=== PATIENT | male | born 1960 | race Caucasian/White ===

== ENCOUNTER 2018-10-30 10:48 | Day surgery (SDC) | payer OTHER ==
[2018-10-29 11:30] VITALS: BMI 40.8
[2018-10-30] MEDS ORDERED: CEFAZOLIN 2 GM/50 ML BAG ONE (11:04)
[2018-10-30 12:32] LABS: #Eosinphils 0.3 thou/uL (0.0-0.7); #Lymphocytes 1.2 thou/uL (1.20-3.40); #Monocytes 0.5 thou/uL (0.11-0.59); #Neutrophils 6.3 thou/uL (1.40-6.50); %Basophils 0.4 % (0.0-1.0); %Eosinophils 3.6 % (0.0-10.0); %Monocytes 6.3 % (0.0-10.0); %Neutrophils 75.7 % (42.0-75.0); Hemoglobin 15.7 g/dL (14.0-18.0); Mean Corpuscular HGB CONC 33.6 g/dL (32.0-36.0); Mean Corpuscular Hemoglobin 30.4 pg (27.0-31.0); Mean Corpuscular Volume 90.4 fL (78.0-98.0); Mean Platelet Volume 8.2 fL (7.4-10.4); Platelet Count 147 thou/uL (130-400); RBC Distribution Width 12.5 % (11.5-14.5); Red Blood Cell (RBC) Count 5.16 mill/uL (4.70-6.10); White Blood Cell (WBC) Count 8.4 thou/uL (4.8-10.8)
[2018-10-30 12:40] LABS: INR-International Normal Ratio 1.1; PTT 29.3 SEC (22.9-36.1)
[2018-10-30] MEDS ORDERED: Meperidine HCl/PF 25 MG/ML VIAL ONE (13:34)
[2018-10-30] MEDS ORDERED: Midazolam HCl 2 mg/2 ml Vial ONE (13:35)
--- NOTE | 2018-10-30 16:09 | RAD ---
SINGLE VIEW OF THE CHEST: Comparison: 07-12-16 History: ICD placement. History of chest pain. FINDINGS: Single view of the chest shows an enlarged cardiomediastinal silhouette. There is a pacemaker with le ads in the right atrium, right ventricle, and coronary sinus. No pneumothorax is seen. There is no ev idence of consolidation, mass or pleural effusion. IMPRESSION: Status post pacemaker exchange without evidence of complication. POS: C
[2018-10-30] MEDS ORDERED: PROPOFOL 200 MG/20 ML VIAL ONE (21:09)
== END 2018-10-30 16:02 | disposition home or self-care (01) ==
LOC: SDC 10:48
PROVIDERS: ATTEND Internal Medicine Cardiovascular Disease
DX: Z45.02 Encounter for adjustment and management of automatic implantable cardiac defibrillator (principal); I11.0 Hypertensive heart disease with heart failure; I50.22 Chronic systolic (congestive) heart failure; I44.7 Left bundle-branch block, unspecified; I42.8 Other cardiomyopathies; E66.01 Morbid (severe) obesity due to excess calories; Z68.41 Body mass index [BMI] 40.0-44.9, adult; Z79.899 Other long term (current) drug therapy
CPT/HCPCS: 33264; 71045; 85025; 85610; 85730; 93641; C1882; J2175; J2250; J2704; J3490

== ENCOUNTER 2019-03-08 05:16 | Emergency (ER) | payer OTHER, SELFPAY ==
[2019-03-08] MEDS ORDERED: Nitroglycerin 2% Ointment 1 INCH/1 GM Packet ONE (06:08)
[2019-03-08] MEDS ORDERED: Aspirin Chewable 81 MG TAB ONE (06:08)
[2019-03-08] MEDS ORDERED: predniSONE 20 MG TAB ONE (06:08)
[2019-03-08 06:28] LABS: #Basophils 0.1 thou/uL (0.0-0.2); #Eosinphils 0.6 thou/uL (0.0-0.7); #Lymphocytes 0.7 thou/uL (1.20-3.40); #Monocytes 0.9 thou/uL (0.11-0.59); #Neutrophils 10.2 thou/uL (1.40-6.50); %Basophils 0.6 % (0.0-1.0); %Eosinophils 4.8 % (0.0-10.0); %Lymphocytes 5.8 % (21.0-51.0); %Monocytes 7.3 % (0.0-10.0); %Neutrophils 81.5 % (42.0-75.0); Hemoglobin 13.1 g/dL (14.0-18.0); Mean Corpuscular HGB CONC 32.4 g/dL (32.0-36.0); Mean Corpuscular Hemoglobin 30.1 pg (27.0-31.0); Mean Corpuscular Volume 92.8 fL (78.0-98.0); Mean Platelet Volume 8.3 fL (7.4-10.4); Platelet Count 134 thou/uL (130-400); RBC Distribution Width 13.2 % (11.5-14.5); Red Blood Cell (RBC) Count 4.36 mill/uL (4.70-6.10); White Blood Cell (WBC) Count 12.5 thou/uL (4.8-10.8)
[2019-03-08 06:45] LABS: ALT (SGPT) 23 U/L (8-55); AST (SGOT) 52 U/L (5-34); Albumin 3.8 g/dL (3.5-5.0); Alkaline Phosphatase 88 U/L (40-150); Anion Gap 11 mmol/L (10-20); BUN (Urea Nitrogen) 12 mg/dL (8.4-25.7); Bilirubin, Total 0.8 mg/dL (0.2-1.2); CK (CPK) 688 U/L (30-200); Calc. Creatinine Clearance 0 mL/min (70-130); Calcium 8.9 mg/dL (7.8-10.44); Carbon Dioxide 26 mmol/L (22-29); Chloride 108 mmol/L (98-107); Estimated GFR-MDRD Greater than 90; Globulin 2.9 g/dL (2.4-3.5); Glucose 115 mg/dL (70-105); Potassium 4.6 mmol/L (3.5-5.1); Protein, Total 6.7 g/dL (6.0-8.3); Sodium 140 mmol/L (136-145)
--- NOTE | 2019-03-08 07:37 | RAD ---
CHEST 1 VIEW: Date: 03/08/19 HISTORY: Chest pain and cough. COMPARISON: Prior exam dated 10/20/18. FINDINGS: The exam technique and limited inspiration slightly limits image detail of the exam. There is stable mild cardiomegaly. AICD is unchanged. No definite consolidation, pleural effusion, or pneumothorax ev ident. IMPRESSION: Limited exam. No definite acute cardiopulmonary abnormality. POS: BH
== END 2019-03-08 07:12 | disposition home or self-care (01) ==
LOC: SCSER 05:16
DX: J45.901 Unspecified asthma with (acute) exacerbation (principal); I11.0 Hypertensive heart disease with heart failure; I50.9 Heart failure, unspecified; Z79.899 Other long term (current) drug therapy
CPT/HCPCS: 71045; 80053; 82550; 83880; 84484; 85025; 93005; 94640; 94760; J7512; J7620

== ENCOUNTER 2020-03-21 12:08 | Inpatient (IN) | payer OTHER ==
[~2020-03-21 12:08] MED LIST: Iopamidol 370 76% 100 ML VIAL ONE
--- NOTE | 2020-03-21 13:12 | RAD ---
Exam: Chest one view HISTORY:Pleural effusion. Comparison: 03/08/2019 FINDINGS: Cardiac silhouette:Complete opacification left hemithorax which is presumed to be due to volume loss. There is leftward deviation of the coronary cell silhouette. Aorta: Cannot be assessed due to left hemithoracic opacification Pulmonary vessels: Normal Costophrenic angles: Right costophrenic angle is clear. Left-sided effusion cannot be excluded LUNGS: Compensatory hyperinflation of the right lung. Lines and tubes: Stable left-sided defibrillator. Lead position of the right atrium, right ventricle and coronary sinus. Right-sided HemoSplit dialysis catheter is presumed to terminate in the right atrium. Pneumothorax: None Osseous abnormalities: None IMPRESSION: 1. Complete opacification the left hemithorax. Given compensatory hyperinflation of the right lung an d leftward deviation cardiac mediastinal silhouette, component of volume loss in the left lung is suspected. Consider chest CT for better interrogation.
[2020-03-21 13:24] LABS: #Eosinphils 0.1 thou/uL (0.0-0.7); #Lymphocytes 0.9 thou/uL (1.20-3.40); #Monocytes 0.5 thou/uL (0.11-0.59); #Neutrophils 4.3 thou/uL (1.40-6.50); %Basophils 0.4 % (0.0-1.0); %Eosinophils 1.4 % (0.0-10.0); %Lymphocytes 15.5 % (21.0-51.0); %Monocytes 9.1 % (0.0-10.0); %Neutrophils 73.7 % (42.0-75.0); Hemoglobin 10.1 g/dL (14.0-18.0); Mean Corpuscular Hemoglobin 29.7 pg (27.0-31.0); Mean Corpuscular Volume 98.8 fL (78.0-98.0); Mean Platelet Volume 9.3 fL (7.4-10.4); Platelet Count 103 thou/uL (130-400); RBC Distribution Width 19.3 % (11.5-14.5); Red Blood Cell (RBC) Count 3.42 mill/uL (4.70-6.10); White Blood Cell (WBC) Count 5.8 thou/uL (4.8-10.8)
[2020-03-21 13:32] LABS: Anisocytosis SLIGHT = 6-15 cells (100X) (0-5/hpf); MDiff Complete? YES; Ovalocytes SLIGHT = 2-5 cells (100X) (0-1/hpf); Platelet Morphology Comment Appears Decreased; Polychromasia SLIGHT = 2-3 cells (100X) (0-2/hpf)
[2020-03-21 13:37] LABS: ALT (SGPT) 13 U/L (8-55); AST (SGOT) 54 U/L (5-34); Albumin 1.8 g/dL (3.5-5.0); Alkaline Phosphatase 146 U/L (40-110); Anion Gap 13 mmol/L (10-20); BUN (Urea Nitrogen) 15 mg/dL (8.4-25.7); Bilirubin, Total 0.8 mg/dL (0.2-1.2); Calc. Creatinine Clearance 0 mL/min (70-130); Calcium 7.6 mg/dL (7.8-10.44); Carbon Dioxide 26 mmol/L (22-29); Chloride 107 mmol/L (98-107); Estimated GFR-MDRD 16; Globulin 3.1 g/dL (2.4-3.5); Glucose 77 mg/dL (70-105); Potassium 5.1 mmol/L (3.5-5.1); Protein, Total 4.9 g/dL (6.0-8.3); Sodium 141 mmol/L (136-145)
[2020-03-21 14:16] LABS: CKMB 7.8 ng/mL (0-6.6)
--- NOTE | 2020-03-21 14:26 | CT ---
CT of chest with IV contrast HISTORY: COVID 19 positive. Pleural effusion. FINDINGS: There is complete collapse of the left lung with minimal central air bronchograms. No focal mass evident. Small to moderate amount of left pleural fluid. Decreased capacity of the left hemithorax. Mild atelectasis at the dependent portion of the right lung with minimal right pleural fluid. Nonenlarged, nonspecific lymph nodes throughout the mediastinum. A 1.6 cm low-density adenoma arises from the left adrenal gland. IMPRESSION : Complete collapse of the left lung. Cause is not apparent. Endobronchial lesion not directly visualiz ed. Endobronchial cause is still favored. Please consider pulmonary evaluation for potential bronchoscopy. Small to moderate reactive left pleural effusion. Hyperinflation of the right lung with mild dependent atelectasis and minimal right pleural fluid. Small left adrenal adenoma.
[2020-03-21] MEDS ORDERED: Aspirin 325 MG TAB ONE (14:47)
[2020-03-21] MEDS ORDERED: Acetaminophen 325 MG TAB PO PRN (15:43)
[2020-03-21] MEDS ORDERED: Senokot S 8.6-50 MG TAB PO PRN (15:43)
[2020-03-21] MEDS ORDERED: HYDROcodone/Acetaminophen 5/325 mg Tablet PO PRN (15:43)
[2020-03-21] MEDS ORDERED: Bisacodyl 10 MG SUPP PR PRN (15:43)
[2020-03-21] MEDS ORDERED: Ondansetron PF 4 MG/2 ML Vial IVP PRN (15:43)
[2020-03-21] MEDS ORDERED: Calcium Carbonate 500 MG ChewTAB PO PRN (15:43)
[2020-03-21] MEDS ORDERED: Guaifenesin DM 100-10/5 ML UDCUP PO PRN (15:43)
[2020-03-21] MEDS ORDERED: Cefepime 1 GM in Sodium Chloride 0.9% 100 ML IVPB SCH (15:45)
[2020-03-21] MEDS ORDERED: Aspirin Chewable 81 MG TAB ONE (16:33)
--- NOTE | 2020-03-21 16:38 | HP ---
REASON FOR ADMISSION: Shortness of breath, left lung atelectasis, COVID positive. HISTORY OF PRESENTING ILLNESS: The patient was sent over from [facility] for increasing shortness of breath. He apparently had an x-ray done at the facility, which showed a large effusion on the left. He has been positive for COVID test done on 03/08/2020 as part of facility protocol due to exposure of residents for positive COVID cases. He has not had any symptoms due to COVID from 03/08 like fever, shortness of breath, or cough. This shortness of breath he developed from last 4 days, which has been progressively getting worse. He has not ambulated from September. He has had exploratory abdominal surgery done in September for perforated viscus/perforated abdominal viscus. The exact particulars of this operation are not available to us at present. detention records have not accompanied the patient. We were able to get the positive test result that was done on 03/08/2020 from [facility]. We are expecting the rest of the fax to appear shortly. PAST MEDICAL AND SURGICAL HISTORY: History of CHF with prior EF of 20% to 25%, AICD with biventricular pacer, asthma, morbid obesity, appendectomy, history of nonischemic cardiomyopathy, history of Vtach in 2011. CURRENT MEDICATIONS: We are awaiting med list to come from [facility]. It has not accompanied the patient and the patient does not recall all of his medication. He knows he is taking aspirin. ALLERGIES: NO KNOWN DRUG ALLERGIES. PERSONAL HISTORY: Does not abuse alcohol or drugs. No history of smoking. He has prior history of cocaine use per prior records, although the patient denies it at present. 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 FAMILY HISTORY: Mother is living and healthy as far as he knows. Father of lung cancer and was a heavy smoker in his 70s. CODE STATUS: Full, power of mergers and acquisitions attorney is his mother. REVIEW OF SYSTEMS: CONSTITUTIONAL: Negative for weight loss or gain, ability to conduct usual activities. SKIN: Negative for rash, itching. EYES: Negative for double vision, pain. ENT/MOUTH: Negative for nose bleeding, neck stiffness, pain, tenderness. CARDIOVASCULAR: Negative for palpitations, dyspnea on exertion, orthopnea. RESPIRATORY: Negative for shortness of breath, wheezing, cough, hemoptysis, fever or night sweats. GASTROINTESTINAL: Negative for poor appetite, abdominal pain, heartburn, nausea , vomiting, constipation, or diarrhea. GENITOURINARY: Negative for urgency, frequency, dysuria, nocturia. MUSCULOSKELETAL: Negative for pain, swelling. NEUROLOGIC/PSYCHIATRIC: Negative for anxiety, depression. ALLERGY/IMMUNOLOGIC: Negative for skin rash, bleeding tendency. PHYSICAL EXAMINATION: GENERAL: The patient is a 60-year-old male who is currently not in any acute distress. VITAL SIGNS: Blood pressure 100/60, pulse 80 per minute, respiratory rate 18 per minute, temperature 98.8 degrees Fahrenheit, saturating 98% on 2 L nasal cannula. NECK: Supple. No elevated JVD. HEENT: Eyes; extraocular muscles intact. Pupils reacting to light. Oral cavity, mucous membranes are dry. No exudates or congestion. CARDIOVASCULAR SYSTEM: S1 and S2 heard. Regular rhythm. RESPIRATORY: There is very minimal air entry in the left infra-axillary area. Right thorax, no wheezes or rhonchi heard. ABDOMEN: Soft. There is a midline healing scar with thinned out skin. He has 1 x 0.5 cm small opening in the scar, which is oozing serous material. He has a Band-Aid with underlying small ulcer in the upper end of the midline scar near the xiphoid process. Bowel sounds are heard. No tenderness, rigidity, or guarding. EXTREMITIES: Peripheral edema 1+. No calf tenderness. VASCULAR SYSTEM: Peripheral pulses 1+ bilateral. No ischemic ulcerations or gangrene. CENTRAL NERVOUS SYSTEM: No gross focal deficits noted. The patient is alert, awake, and oriented well. PSYCHIATRIC SYSTEM: The patient's mood is euthymic. No hallucinations or delusions. LABORATORY DATA: CT chest with IV contrast done shows complete collapse of left lung, possible endobronchial lesion is favored. There is left pleural effusion. White count of 5.8, H and H of 10 and 33, platelet count 103, MCV is 98 with 73% neutrophils. BUN is 15, creatinine 3.9, potassium 5.1, serum glucose 77, total bilirubin 0.8. AST and ALT of 54 and 13, alkaline phosphatase 146. CK-MB 7.8. Albumin is 1.8. Troponin I 0.29. EKG done shows paced rhythm at 82 beats per minute. There is nonspecific ST-T wave changes. CLINICAL IMPRESSION AND PLAN: The patient will be admitted to [facility] for left lung collapse with suspected endobronchial lesion and a pleural effusion on the left. Dr. Packer is evaluating the patient here in the ER. The plan is for bronchoscopy in the morning. We will also consult Dr. Freeman for dialysis. He will be empirically placed on cefepime and vancomycin based on renal protocol. There is no obvious sign of sepsis at present. He has been COVID positive from 03/08/2020. A repeat COVID test is being done in the ER to see if he is negative for the same. He will be on DuoNeb q.6 hourly. The fax from [facility] about his current medication is expected any time. Once it is available, we will review it and the patient will be placed on them. We will continue to closely monitor him in [facility] for now. Job ID: [id number] MTDD
[2020-03-21] MEDS ORDERED: HOLD VANCOMYCIN FOR LEVEL >20 FS SCH (16:45)
[2020-03-21] MEDS ORDERED: Vancomycin 1 GM in Premix Bag 1 BAG IVPB SCH (16:45)
[2020-03-21] MEDS ORDERED: Vancomycin HCl 1.5 GM in Sodium Chloride 0.9% 250 ML 300 ML IVPB SCH (16:45)
[2020-03-21] MEDS ORDERED: Vancomycin HCl 1.25 GM in Sodium Chloride 0.9% 250 ML 250 ML IVPB SCH (16:45)
[2020-03-21] MEDS ORDERED: Vancomycin HCl 750 MG in Sodium Chloride 0.9% 250 ML 250 ML IVPB SCH (16:45)
[2020-03-21 17:05] LABS: Troponin I 0.274 ng/mL (< 0.028)
[2020-03-21] MEDS ORDERED: Prevnar 13-Val Conj/PF 0.5 ML SYRINGE IM ONE (18:30)
[2020-03-21] MEDS: Albuterol 200 PUFF (6.7GM INHALER) INH SCH (19:42)
[2020-03-21 19:54] LABS: Troponin I 0.284 ng/mL (< 0.028)
[2020-03-21] MEDS: Midodrine HCl 5 MG TAB PO SCH (20:00)
[2020-03-21] MEDS: Heparin 5,000 UNITS/ML VIAL SC SCH (20:00)
--- NOTE | 2020-03-22 00:36 | CON ---
DATE OF CONSULTATION: HISTORY OF PRESENT ILLNESS: Mr. Ogden is a 60-year-old white male, who was admitted for shortness of breath. He was found to have a left lung atelectasis. The initial evaluation is that he may have a large effusion of the left. However, Pulmonary Medicine-Dr. Packer felt that this may not be fluid. He wanted to proceed with a bronchoscopy to rule out any lung mass. We have been consulted for management of the patient's ESRD. Please note, he has been diagnosed with a COVID-19 back on 03/08. He was completely asymptomatic. The plan is to repeat another COVID-19 test with this patient. REVIEW OF SYSTEMS: No chest pain or shortness of breath. Denies any fever or chills. No syncopal episode. No productive cough. No hematochezia. No melena. No hematemesis. Appetite energy level is fair. PAST MEDICAL HISTORY: ESRD-secondary to prolonged acute tubular necrosis, history of morbid obesity, history of CHF with EF of 20% to 25%, history of nonischemic cardiomyopathy, status post ventricular tachycardia, recently status post pneumonia. PAST SURGICAL HISTORY: Status post AV fistula placement, status post AICD/ pacemaker placement, status post cuffed hemodialysis catheter placement. SOCIAL HISTORY: The patient is currently single. He is a alf at [employer]. He has one child. He does not smoke at the present time. No alcohol. No IV drug abuse. 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 ALLERGIES: NONE. TRAUMA: None. IMMUNIZATIONS: Up to date. HOSPITALIZATION: Please see past medical history. FAMILY HISTORY: No family history of ESRD. PHYSICAL EXAMINATION: VITAL SIGNS: Blood pressure is 100/60, heart rate 70, respiratory rate 18, temperature 98.8, and pulse ox 98%. GENERAL: The patient is awake, alert, comfortable, obese, not in distress. SKIN: Adequate turgor. HEENT: Pinkish conjunctivae. Anicteric sclerae. NECK: No neck mass. No carotid bruits. No JVD. CHEST: No deformities. LUNGS: Decreased breath sounds. HEART: Normal sinus rhythm. No murmur. No gallops. No rubs. ABDOMEN: Globular, soft, nontender. No masses. Small opening in a surgical scar noted, 1 x 0.5 cm. EXTREMITIES: Positive for edema. NEUROLOGICAL: Awake, oriented to 3 spheres. Moving all extremities. No tremors. No asterixis. No ataxia. LABORATORY DATA: On 03/21/2020; white count 5.8, hemoglobin 10.1. Sodium 141, potassium 5.1, chloride 107, carbon dioxide 26, BUN 15, creatinine 3.98, calcium 7.6, AST 54, ALT 13, albumin 1.8. ASSESSMENT AND PLAN: 1. End-stage renal disease secondary to prolonged acute tubular necrosis. No evidence of renal recovery. Continue current supportive dialysis. Continue Friday, , and Friday hemodialysis regimen with fluid removal only as tolerated. 2. Left lung abnormality-the patient is scheduled for a bronchoscopy tomorrow by Dr. Packer. 3. COVID-19 positive-we will repeat another COVID-19 testing. He is clinically asymptomatic. 4. Overall prognosis remains guarded. Overall, agree with current management. Job ID: [id number] MTDD
--- NOTE | 2020-03-22 00:50 | CON ---
DATE OF CONSULTATION: HISTORY OF PRESENT ILLNESS: Ike Ogdne is a 60-year-old gentleman from [place], [place], who was transferred to [facility] ER after his primary care physician thought he found a large pleural effusion. Patient apparently from a rehab shelter in [place] who had a positive serology for coronavirus 2 weeks ago, though apparently was asymptomatic. He went to see his primary care physician. X-ray apparently showed a pleural effusion. X-ray taken earlier shows opacification of the left lung with ipsilateral lateral loss of volume shift in the mediastinum to the same size suggesting of an endobronchial lesion. CT chest confirmed a small pleural effusion and probably a left lower lung atelectatic changes. He is not being admitted to the ICU, he is a coronavirus rule out repeat second time. He remains relatively asymptomatic. PAST MEDICAL HISTORY: History of CHF, though his last stress test was negative, hypertension, and history of asthma. PAST SURGICAL HISTORY: Previous surgeries, appendix abscess. SOCIAL HISTORY: Drinks 2-3 times a week. Tobacco, none apparently. HOME MEDICATIONS: Includes; 1. Presumably Ventolin inhaler. 2. Entresto . 3. Lasix 20 a day. 4. He is being dialyzed recently, being followed by a local regional vice president life sales. ALLERGIES: NONE. REVIEW OF SYSTEMS: Otherwise, negative. VITAL SIGNS: VITAL SIGNS: In the ER; sats are 98% on 2 L, respiratory rate 18, blood pressure 100/62, temperature 98. CHEST: Decreased breath sounds in left lung, right unremarkable. CARDIAC: Normal S1, S2. No gallops. ABDOMEN: Soft. NEUROLOGIC: Awake, alert, responsive. LABORATORY DATA: Shows his creatinine is 3.98, BUN is 15. CK-MB is elevated. White count 5000, H and H 10 and 38, platelet count is 103, decreased. This is something new. IMPRESSION: 1. Left lung atelectasis with associated pleural effusion. 2. Rule out endobronchial disease. 3. Renal failure. 4. History of coronary artery disease. 5. Morbid obesity. 6. Noncompliance. 7. Status post automated implantable cardioverter defibrillator, ejection fraction of 36% on the last visit. PLAN: Once his serology is negative, we will consider doing a diagnostic bronchoscopy and thoracentesis. Otherwise, agree with empiric antibiotics, neb treatments, supportive care. Consultation note, 70 minutes, 50% direct patient care. Job ID: [id number]
[2020-03-22] MEDS: Albuterol 200 PUFF (6.7GM INHALER) INH SCH ×4 (01:15→17:59)
[2020-03-22 04:41] LABS: Anion Gap 14 mmol/L (10-20); BUN (Urea Nitrogen) 16 mg/dL (8.4-25.7); Calc. Creatinine Clearance 34 mL/min (70-130); Calcium 7.4 mg/dL (7.8-10.44); Carbon Dioxide 20 mmol/L (22-29); Chloride 109 mmol/L (98-107); Estimated GFR-MDRD 15; Glucose 62 mg/dL (70-105); Potassium 5.8 mmol/L (3.5-5.1); Sodium 137 mmol/L (136-145)
[2020-03-22 08:06] LABS: #Basophils 0.1 thou/uL (0.0-0.2); #Eosinphils 0.1 thou/uL (0.0-0.7); #Lymphocytes 1.2 thou/uL (1.20-3.40); #Monocytes 0.8 thou/uL (0.11-0.59); #Neutrophils 5.5 thou/uL (1.40-6.50); %Basophils 0.8 % (0.0-1.0); %Eosinophils 1.7 % (0.0-10.0); %Lymphocytes 15.9 % (21.0-51.0); %Monocytes 10.5 % (0.0-10.0); %Neutrophils 71.1 % (42.0-75.0); Mean Corpuscular HGB CONC 31.3 g/dL (32.0-36.0); Mean Corpuscular Hemoglobin 30.5 pg (27.0-31.0); Mean Corpuscular Volume 97.6 fL (78.0-98.0); Mean Platelet Volume 9.7 fL (7.4-10.4); Platelet Count 84 thou/uL (130-400); RBC Distribution Width 19.1 % (11.5-14.5); Red Blood Cell (RBC) Count 3.27 mill/uL (4.70-6.10); White Blood Cell (WBC) Count 7.7 thou/uL (4.8-10.8)
[2020-03-22] MEDS: Midodrine HCl 5 MG TAB PO SCH ×3 (08:29→19:26)
[2020-03-22] MEDS: Heparin 5,000 UNITS/ML VIAL SC SCH ×2 (08:29→19:26)
[2020-03-22 09:36] LABS: Hep B Surf Ag Non-Reactive S/CO (NonReactive)
--- NOTE | 2020-03-22 09:56 | PRG ---
DATE OF SERVICE: 03/22/2020 SUBJECTIVE: Mr. Ogden is a 60-year-old white male with ESRD and was admitted due to a significant left pleural effusion versus underlying renal mass. We are following him up for his maintenance hemodialysis. He has also been COVID positive and was diagnosed several days ago. He is clinically asymptomatic. He is undergoing hemodialysis today. Fluid removal is being done only as tolerated by the patient. No other complaints. OBJECTIVE: VITAL SIGNS: Blood pressure 96/65, heart rate 94, respiratory rate 17, O2 saturation 100%. GENERAL: Noted to be awake, alert, comfortable, supine, not in distress. SKIN: Adequate turgor. HEENT: Pinkish conjunctivae. Anicteric sclerae. NECK: No neck mass. No carotid bruits. No JVD. CHEST: No deformities. LUNGS: Clear breath sounds. HEART: Normal sinus rhythm. No murmur. No gallops. No rubs. ABDOMEN: Globular, soft, nontender. No masses. EXTREMITIES: No edema. No deformities. MEDICATIONS: Medications of March 22, 2020, reviewed. LABORATORY DATA: Laboratories of March 22, 2020; white count 7.7, hemoglobin 10. Sodium 137, potassium 5.8, chloride 109, carbon dioxide 20, BUN 16, creatinine 4.09, glucose 62, calcium 7.4. Troponin I 0.284. IMAGING STUDIES: March 21, 2020, CT scan of the chest shows collapse of the left lungs-possibility of an endobronchial lesion. ASSESSMENT AND PLAN: 1. End-stage renal disease stable. We will continue current 3 times a week hemodialysis. Dialysis was placed on hold yesterday due to the low grade blood pressure. Blood pressure is little better today. He has been restarted on midodrine 5 mg p.o. t.i.d., fluid removal only as tolerated. 2. Left lung collapse-CAT scan suggested that the left lung is collapsed and that there maybe an endobronchial lesion. A plan of bronchoscopy is being contemplated by Dr. Packer. Overall prognosis remains guarded. 3. History of a coronavirus disease positive-recheck COVID again. The patient is clinically asymptomatic. Job ID: [id number]
[2020-03-22 10:48] VITALS: BMI 35.5
--- NOTE | 2020-03-22 12:31 | RAD ---
Exam: Chest one view HISTORY:Atelectasis. Pleural effusion Comparison: 03/21/2020 FINDINGS: Lines and tubes: Stable left-sided defibrillator. Stable right-sided HemoSplit dialysis catheter. Cardiac silhouette: Normal Aorta: Unremarkable Pulmonary vessels: Normal Costophrenic angles: Interval decrease in a comparison noted left-sided effusion. LUNGS: Parenchymal changes left lung base may represent atelectasis, aspiration or pneumonia. Additio nal chronic changes are noted, throughout the lung parenchyma, including the right lung base. Pneumothorax: None Osseous abnormalities: None IMPRESSION: 1. Interval decrease in size of a left-sided pleural effusion. Parenchymal changes in the left and ri ght lung base base do remain.
--- NOTE | 2020-03-22 12:32 | PDOC.HOSPP ---
- Subjective Encounter Date: 03/22/20 Encounter Time: 11:00 Subjective: is getting dialysed, no sob no complaints - Objective Vital Signs & Weight: Vital Signs (12 hours) Temp 03/22/20 12:00 98.5 F 03/22/20 08:00 98.8 F 03/22/20 05:44 98.3 F 03/22/20 02:00 98.1 F Weight Admit Weight 269 lb 9.92 oz Weight 269 lb 9.92 oz Most Recent Monitor Data Heart Rate from ECG 117 NIBP 97/66 NIBP BP-Mean 76 Respiration from ECG 18 SpO2 100 I&O: 03/21/20 03/22/20 03/23/20 06:59 06:59 06:59 Intake Total 250 360 Output Total 50 0 Balance 200 360 Result Diagrams: 03/22/20 07:27 03/22/20 03:38 Hospitalist ROS - Medication Medications: Active Medications Generic Name Dose Route Start Last Admin Trade Name Freq PRN Reason Stop Dose Admin Albuterol Sulfate 2 puff 03/21/20 19:00 03/22/20 01:15 Proventil Hfa INH 2 puff [id number] BERTRAND Administration Heparin Sodium (Porcine) 5,000 units 03/21/20 21:00 03/22/20 08:29 Heparin SC 5,000 units BID BERTRAND Administration Midodrine 5 mg 03/21/20 21:00 03/22/20 08:29 Proamatine PO 5 mg TID BERTRAND Administration - Exam General Appearance: awake alert Eye: PERRL, anicteric sclera ENT: no oropharyngeal lesions, dry oral mucosa Neck: supple, no JVD Heart: RRR Respiratory: no wheezes, no tachypnea Gastrointestinal: soft, non-distended, normal bowel sounds Extremities: no cyanosis, 1+ LE edema Neurological: cranial nerve grossly intact, no focal deficits Hosp A/P (1) Atelectasis of left lung Code(s): J98.11 - ATELECTASIS Status: Acute (2) Pleural effusion, left Code(s): J90 - PLEURAL EFFUSION, NOT ELSEWHERE CLASSIFIED Status: Acute (3) Real time reverse transcriptase PCR positive for COVID-19 virus Code(s): U07.1 - COVID-19 Status: Acute (4) Obesity (BMI 30-39.9) Code(s): E66.9 - OBESITY, UNSPECIFIED Status: Chronic (5) HTN (hypertension) Code(s): I10 - ESSENTIAL (PRIMARY) HYPERTENSION Status: Chronic Qualifiers: Hypertension type: essential hypertension Qualified Code(s): I10 - Essential (primary) hypertension (6) ESRD (end stage renal disease) on dialysis Code(s): N18.6 - END STAGE RENAL DISEASE; Z99.2 - DEPENDENCE ON RENAL DIALYSIS Status: Chronic (7) Severe protein-calorie malnutrition Code(s): E43 - UNSPECIFIED SEVERE PROTEIN-CALORIE MALNUTRITION Status: Chronic (8) poor functional status Status: Chronic - Plan repeat cxr this am shows better aeration of lungs, still has effusion is on vanc and cefepime getting hemodialysis now encourage po intake has severe deconditioning and has not ambulated at snf per patient, PT/OT to mobilze as tolerated wound care for abd surg small non healing areas alb inhaler, midodrine cortisol levels in am hemostable
--- NOTE | 2020-03-22 14:17 | PRG ---
DATE OF SERVICE: 03/22/2020 SUBJECTIVE: Ike Ogden is status post dialysis. Chest x-ray was obtained, which surprisingly showed much improvement with left lung atelectatic changes, much improved and a small left pleural effusion. He is feeling better. Though the lung is still atelectatic at the base, it is possible he may have a large mucus plug there. Because a CT of the chest was otherwise nondiagnostic. OBJECTIVE: GENERAL: He is awake, alert, and responsive. VITAL SIGNS: His vital signs reveal his saturations are 100%, blood pressure 102/65, pulse 70, respiratory rate 18. CHEST: Decreased breath sounds, left lung. CARDIAC: Normal S1 and S2. No gallops. ABDOMEN: No masses. LABORATORY DATA: Creatinine is 4.9. ASSESSMENT: Left lung atelectasis, pleural effusion improved, probably endobronchial mucous, renal failure, and morbid obesity. PLAN: Resume diet today. We will reassess his situation in the morning. Consider a bedside diagnostic bronchoscopy once his serology comes back. Job ID: [id number]
[2020-03-22] MEDS ORDERED: Cefepime 0.5 GM, Admixture Fee 1 EACH in Sodium Chloride 0.9% 100 ML IVPB SCH (17:00)
[2020-03-22 18:38] LABS: SARS-CoV-2 MS2 Positive; SARS-CoV-2 N Gene Positive; SARS-CoV-2 S Gene Positive; SARS-CoV-2 orf1ab Positive
[2020-03-23] MEDS: Albuterol 200 PUFF (6.7GM INHALER) INH SCH ×3 (01:25→15:14)
--- NOTE | 2020-03-23 07:58 | RAD ---
Exam: Chest one view HISTORY:Pleural effusion. Atelectasis. Comparison: 03/22/2020 FINDINGS: Lines and tubes: Stable left-sided defibrillator and right-sided HemoSplit dialysis catheter. Cardiac silhouette:Stable cardiac silhouette, without evidence of cardiomegaly Aorta: Unremarkable Pulmonary vessels: Normal Costophrenic angles: Left-sided pleural effusion. LUNGS: Parenchymal changes in left hemithorax. Stable parenchymal changes in the right lung base. Pneumothorax: None Osseous abnormalities: None IMPRESSION: Stable pleural and parenchymal changes in the left hemithorax. Stable parenchymal changes in the right lung base.
[2020-03-23] MEDS: Midodrine HCl 5 MG TAB PO SCH ×2 (08:35→15:18)
[2020-03-23] MEDS: Heparin 5,000 UNITS/ML VIAL SC SCH (08:35)
--- NOTE | 2020-03-23 09:12 | PRG ---
DATE OF SERVICE: 03/23/2020 SUBJECTIVE: This morning, he is awake, alert, responsive. OBJECTIVE: VITAL SIGNS: His temperature is 98, blood pressure 105/63, sats 100%, respiratory rate 18. GENERAL: He is awake, responsive. He was dialyzed yesterday. CHEST: No wheezing or crackles. CARDIAC: Normal S1, S2. ABDOMEN: No masses. DIAGNOSTIC DATA: His x-ray shows much improvement in his left-sided atelectatic changes. There is minimal pleural effusion of any and small atelectatic changes. His Coronavirus test was positive. Unfortunately, that precludes any diagnostic bronchoscopy procedure. IMPRESSION: Left lung atelectasis, effusion, pneumonia versus endobronchial disease, chronic renal failure. PLAN: Because of his Coronavirus positive, bronchoscopy will not be performed. His pleural effusion is too small for thoracentesis. I am going to switch him over to p.o. prednisone and he can probably be discharged back to [place]. Repeat serology and x-ray in several weeks. If this is negative, we will consider doing a bronchoscopy at later time. We will discuss with primary care physician. Job ID: [id number]
--- NOTE | 2020-03-23 10:48 | PRG ---
DATE OF SERVICE: 03/23/2020 SERVICE: Renal Medicine. SUBJECTIVE: Mr. Ogden is a 60-year-old white male, followed up by the Renal Service for his ESRD. He underwent hemodialysis yesterday for a potassium of 5.8. He was initially admitted for a question mattie of left-sided pleural effusion. The feeling is that the whiteout of the lung is a reflection of possible endobronchial lesion. Due to him being COVID positive, the bronchoscopy will be placed on hold temporarily. The left lung on x-ray was noted to be stable with no worsening. The patient voices no new complaints. He denies any chest pain or shortness of breath. OBJECTIVE: VITAL SIGNS: Blood pressure 105/63, heart rate 93, respiratory rate 17, O2 saturation 100%. GENERAL: Noted to be awake, alert, comfortable, not in overt distress. SKIN: Adequate turgor. HEENT: He has pinkish conjunctivae. Anicteric sclerae. NECK: No neck mass. No carotid bruits. No JVD. CHEST: No deformities. LUNGS: Clear breath sounds. HEART: Normal sinus rhythm. No murmur. No gallops. No rubs. ABDOMEN: Globular, soft, and nontender. No masses. EXTREMITIES: No edema. No deformities. MEDICATIONS: Medications of March 23, 2020, were reviewed. LABORATORY DATA: Laboratories of March 23, 2020: None. March 22, 2020: Hemoglobin 10, white count 7.7. March 22, 2020: Sodium 137, potassium 5.8, chloride 109, carbon dioxide 20, BUN 16, creatinine 4.09, calcium 7.4. ASSESSMENT AND PLAN: 1. Left pleural lesion - possibility of an endobronchial lesion. Bronchoscopy placed on hold temporarily due to the patient still being COVID positive. 2. Continue supportive care. 3. End-stage renal disease, stable. Hemodialysis 3 times a week. If the patient is to be discharged today, we will do dialysis. If not, we will schedule him for dialysis in a.m. 4. Overall, prognosis remains guarded. Continue supportive care. Job ID: [id number] MTDD
[2020-03-23 12:48] VITALS: TEMP 98.7
[2020-03-23 16:26] VITALS: BP 102/64
[2020-03-23] MEDS ORDERED: guaiFENesin ER 600 MG TAB PO SCH (21:00)
[2020-03-24] MEDS ORDERED: Saccharomyces boulardii 250 MG CAP PO SCH (09:00)
--- NOTE | 2020-03-24 10:58 | DIS ---
DATE OF ADMISSION: 03/21/2020 DATE OF DISCHARGE: 03/23/2020 DISCHARGE DISPOSITION: To [facility] FOLLOWUP: Follow up with Dr. Guevara at the longterm. DISCHARGE MEDICATIONS: 1. Levaquin 250 mg daily. 2. Mucinex 600 mg b.i.d. 3. Albuterol inhaler as needed. 4. Midodrine 5 mg 3 times a day. 5. Florastor 250 mg daily. Please note that I was unable to find the medication list from [facility]. Primary care physician advised to resume other home medications. The patient was seen on the day of discharge. Denies any new complaints. BRIEF HOSPITAL COURSE: The patient is a 60-year-old male with nonischemic cardiomyopathy, hypertension, diabetes mellitus type 2, and end-stage renal disease on hemodialysis, presented to the hospital on March 21, 2020, with shortness of breath. He was diagnosed with COVID two weeks ago. He was found to have increasing shortness of breath. His workup was consistent with left lung collapse with suspected endobronchial lesion and pleural effusion on the left. He was evaluated by Pulmonary, Dr. Packer. He was monitored in the intensive care unit. He was started on Levaquin for possible obstructive pneumonia. Bronchoscopy was not performed due coronavirus positive. His pleural effusion was too small for thoracentesis per Dr. Packer. He has been cleared by Dr. Packer for discharge. His COVID antibody testing has been sent and pending at this time. Primary care physician advised to follow. He was seen by Nephrology, Dr. Freeman for maintenance hemodialysis. FINAL DIAGNOSES: 1. Left lung atelectasis with pleural effusion of unclear etiology. Possibilities include obstructive pneumonia versus endobronchial disease. 2. End-stage renal disease, on hemodialysis. 3. Chronic systolic heart failure due to nonischemic cardiomyopathy. The patient is not on angiotensin-converting enzyme inhibitor, angiotensin receptor blockers, or Aldactone due to renal insufficiency. It is unclear why the patient is on beta-blockers at the nursing facility. Home medications unknown. 4. Obesity with a BMI of 35.6. 5. Hyperkalemia status post hemodialysis. A repeat basic metabolic profile as outpatient is recommended. 6. The patient understands the above plan of care. Job ID: [id number]
[2020-03-28 11:52] LABS: SARS-CoV-2 IgG Index 1.89 S/CO (< 1.40)
[2020-03-28 11:53] LABS: SARS-CoV-2 IgG Ab Reactive (NonReactive)
--- NOTE | 2020-03-30 16:40 | EKG ---
Test Reason : ER Blood Pressure : / mmHG Vent. Rate : 082 BPM Atrial Rate : 082 BPM P-R Int : 126 ms QRS Dur : 180 ms QT Int : 416 ms P-R-T Axes : 000 036 058 degrees QTc Int : 486 ms AV dual-paced rhythm Abnormal ECG Confirmed by ROCIO ROSSI DO ([id number]), commercial production editor BERNARD GUAJARDO ([id number] on 03/30/2020 4:39:48 PM Referred By: Confirmed By:ROCIO ROSSI DO
== END 2020-03-23 18:30 | DRG 177 ==
LOC: ERS 12:08 → CCU 14:20
PROVIDERS: ADMIT Internal Medicine; ATTEND Internal Medicine
PROC: 8E0ZXY6 Isolation (ICD-10-PCS; principal; 2020-03-21)
PROC: 5A1D70Z Performance of Urinary Filtration, Intermittent, Less than 6 Hours Per Day (ICD-10-PCS; 2020-03-21)
DX: U07.1 COVID-19 (principal); N18.6 End stage renal disease; N17.0 Acute kidney failure with tubular necrosis; E43 Unspecified severe protein-calorie malnutrition; J90 Pleural effusion, not elsewhere classified; J98.11 Atelectasis; I42.8 Other cardiomyopathies; I13.2 Hypertensive heart and chronic kidney disease with heart failure and with stage 5 chronic kidney disease, or end stage renal disease; J45.909 Unspecified asthma, uncomplicated; I50.9 Heart failure, unspecified; E66.01 Morbid (severe) obesity due to excess calories; R91.1 Solitary pulmonary nodule; I25.10 Atherosclerotic heart disease of native coronary artery without angina pectoris; Z90.49 Acquired absence of other specified parts of digestive tract; Z79.51 Long term (current) use of inhaled steroids; Z79.899 Other long term (current) drug therapy; Z91.19 Patient's noncompliance with other medical treatment and regimen; Z95.810 Presence of automatic (implantable) cardiac defibrillator; Z68.35 Body mass index [BMI] 35.0-35.9, adult
CPT/HCPCS: 36415; 36416; 71045; 71260; 80048; 80053; 82553; 84484; 85025; 86769; 87340; 87635; 90935; 93005; G0257; J0692; J1644; J3370; J3490; J7030; Q9967; U0003

== ENCOUNTER 2020-12-06 07:23 | Outpatient (CLI) | payer MEDICARE ==
[2020-12-07 17:45] LABS: SARS-CoV-2 PCR by NAA Not Detected (NotDetected)
== END 2020-12-06 07:24 | disposition home or self-care (01) ==
LOC: LABBT 07:23
PROVIDERS: ATTEND Specialist
DX: Z01.812 Encounter for preprocedural laboratory examination (principal); N18.6 End stage renal disease; Z20.822 Contact with and (suspected) exposure to COVID-19
CPT/HCPCS: U0003; U0005; 87635

== ENCOUNTER 2020-12-08 12:31 | Outpatient (CLI) | payer MEDICARE ==
--- NOTE | 2020-12-08 13:37 | ULT ---
EXAM: Vein mapping for dialysis access HISTORY: End-stage renal disease. TECHNIQUE: Multiplanar grayscale and color Doppler images were obtained in a bilateral upper extremit y venous ultrasound. Spectral analysis of the Doppler waveforms of the vessels were performed. FINDINGS: The bilateral internal jugular veins and subclavian veins are patent without evidence of th rombus. Right brachial artery is bifid 3.5 and 2.9 mm Right radial artery 2.1 mm Right ulnar artery 2.1 mm Left brachial artery 5.2 mm Left radial artery 2.2 mm Left ulnar artery 2.2 mm RIGHT CEPHALIC VEIN in millimeters 5.8 -- Shoulder 5.9 -- Upper arm 6.2 -- Mid upper arm 2.5-- Just proximal to the elbow 2.9 -- Just distal to the elbow 2.5 -- Forearm 3.6 -- Wrist RIGHT BASILIC VEIN in millimeters 5.4 -- Shoulder 4.0 -- Upper arm 4.7 -- Mid upper arm 4.3 -- Just proximal to the elbow 2.8 -- Just distal to the elbow 3.2 -- Forearm 2.4 -- Wrist LEFT CEPHALIC VEIN in millimeters 2.9 -- Shoulder 2.8 -- Upper arm 3.3 -- Mid upper arm 3.3 -- Just proximal to the elbow 2.1 -- Just distal to the elbow 2.0 -- Forearm 2.4 -- Wrist LEFT BASILIC VEIN in millimeters 3.2 -- Shoulder 2.6 -- Upper arm 3.1 -- Mid upper arm 3.4 -- Just proximal to the elbow 2.5 -- Just distal to the elbow 2.1 -- Forearm 1.9 -- Wrist IMPRESSION: Vein mapping for dialysis access as above
== END 2020-12-08 12:32 | disposition home or self-care (01) ==
LOC: BICULT 12:31
PROVIDERS: ATTEND Specialist
DX: N18.6 End stage renal disease (principal)
CPT/HCPCS: 93970

== ENCOUNTER 2020-12-11 05:28 | Day surgery (SDC) | payer MEDICARE ==
[2020-12-08 09:57] VITALS: BMI 32.3
[2020-12-11] MEDS ORDERED: Acetaminophen 500 MG TAB ONE (06:23)
[2020-12-11] MEDS ORDERED: Ioversol 68 % 50 ML VIAL ONE (06:28)
[2020-12-11] MEDS ORDERED: Heparin 10,000 UNITS/ 10 ML VIAL ONE (06:28)
[2020-12-11] MEDS ORDERED: Lidocaine 2% PF 5 ML VIAL ONE ×2 (06:28→06:40)
[2020-12-11] MEDS ORDERED: Protamine Sulfate 50 MG/5 ML VIAL ONE (06:28)
[2020-12-11] MEDS ORDERED: EPINEPHrine 1 MG/ML AMP ONE (06:28)
[2020-12-11] MEDS ORDERED: Heparin 5,000 UNITS/ML VIAL ONE (06:28)
[2020-12-11] MEDS ORDERED: Bupivacaine 0.25% HCL 30 ML VIAL ONE (06:28)
[2020-12-11] MEDS ORDERED: Fentanyl 100 MCG/2 ML VIAL ONE (06:32)
[2020-12-11 06:40] LABS: #Basophils 0.1 thou/uL (0.0-0.2); #Eosinphils 0.6 thou/uL (0.0-0.7); #Monocytes 0.8 thou/uL (0.11-0.59); #Neutrophils 6.6 thou/uL (1.40-6.50); %Basophils 0.6 % (0.0-1.0); %Eosinophils 6.1 % (0.0-10.0); %Lymphocytes 19.5 % (21.0-51.0); %Monocytes 7.9 % (0.0-10.0); Hemoglobin 10.6 g/dL (14.0-18.0); Mean Corpuscular Hemoglobin 35.3 pg (27.0-31.0); Mean Platelet Volume 6.8 fL (7.4-10.4); Platelet Count 169 thou/uL (130-400); RBC Distribution Width 13.5 % (11.5-14.5); Red Blood Cell (RBC) Count 3.01 mill/uL (4.70-6.10)
[2020-12-11 07:01] LABS: Anion Gap 19 mmol/L (10-20); BUN (Urea Nitrogen) 74 mg/dL (8.4-25.7); Calc. Creatinine Clearance 15 mL/min (70-130); Calcium 9.2 mg/dL (7.8-10.44); Carbon Dioxide 24 mmol/L (22-29); Chloride 102 mmol/L (98-107); Glucose 92 mg/dL (70-105); Potassium 4.7 mmol/L (3.5-5.1); Sodium 140 mmol/L (136-145)
[2020-12-11] MEDS ORDERED: HYDROcodone/Acetaminophen 5/325 mg Tablet ONE (10:45)
[2020-12-11] MEDS ORDERED: Ondansetron PF 4 MG/2 ML Vial ONE (10:52)
[2020-12-11] MEDS ORDERED: Lidocaine 1% PF 5 ML VIAL ONE (10:52)
[2020-12-11] MEDS ORDERED: Glycopyrrolate 0.2 MG/ML 5 ML SYRINGE ONE (10:52)
[2020-12-11] MEDS ORDERED: PROPOFOL 200 MG/20 ML VIAL ONE (10:52)
[2020-12-11] MEDS ORDERED: Rocuronium Bromide 10 MG/ML (10ML VIAL) ONE (10:52)
[2020-12-11] MEDS ORDERED: PHENYLEPHRINE-NS 100 MCG/ML 10 ML SYRINGE ONE (10:52)
--- NOTE | 2020-12-11 10:56 | OP ---
DATE OF PROCEDURE: 12/11/2020 PREOPERATIVE DIAGNOSES: End-stage renal disease, history of prior laparotomy for perforated ulcer. POSTOPERATIVE DIAGNOSES: End-stage renal disease, history of prior laparotomy for perforated ulcer with prohibitive adhesions for a PD catheter. PROCEDURE PERFORMED: Laparoscopic adhesiolysis. FINDINGS: Adhesions prohibitive for a PD catheter. Right Aidan fistula wrist in the cephalic vein to radial artery 3.5 mm coronary dilator outflow. ANESTHESIA: General, local with 0.5% Marcaine, 30 mL mixed with 2% Xylocaine with epinephrine 20 mL. DESCRIPTION OF PROCEDURE: The patient was taken to the operating room, where under general anesthesia, abdomen and right upper extremity was clipped of hair, prepared with ChloraPrep and draped in routine fashion. Local anesthetic was infiltrated in the skin and subcutaneous tissue about the operative site. Left lateral subcostal incision was made, pneumoperitoneum to 15 mmHg was obtained with a Veress needle, replaced with a 5 port, and there were adhesions around this area, although the port was placed safely. The upper abdominal adhesions cleared using the LigaSure and irrigation clear and omental adhesions to the anterior abdominal wall enough to place a right lateral subcostal incision made a 5 port and right subxiphoid incision made. I then cleared adhesions on both sides of the abdomen down towards the pelvis. There were small bowel adhesions, which were loosely adherent and taken down and the others left intact. There was not a space in the pelvis to place the PD catheter. Thus, the PD catheter was not placed and pneumoperitoneum reduced. All instruments were removed, and all skin incisions approximated with subdermal 4-0 Monocryl and [place] glue applied. Attention was then turned to the right wrist where incision was made between the radial artery and cephalic vein, both of which were dissected free. Cephalic vein ligated on hand side with a 4-0 silk tie, divided, spatulated, interrogated with coronary dilators, passing coronary dilators for 2.5 to 3.5 mm coronary dilator out the cephalic vein outflow. Branches divided between clips and 4-0 silk ties. The patient was given 6000 units of heparin intravenously. Radial artery clamped proximally and distally. It was of a good quality. Longitudinal arteriotomy made sharply, elongated with Thurman scissors and in cephalic vein accordingly spatulated and anastomosed to the side radial artery with continuous suture of 6-0 Prolene, releasing clamps noting good Doppler signal. The patient tolerated the procedure well. Subcutaneous tissue was approximated with 3-0 Monocryl, skin with subdermal 4-0 Monocryl, and [place] glue applied. Job ID: [id number]
[2020-12-11] MEDS ORDERED: Heparin 1,000 UNITS/ML VIAL ONE (11:13)
== END 2020-12-11 12:10 | disposition home or self-care (01) ==
LOC: SDC 05:28
PROVIDERS: ATTEND Specialist
PROC: 0DNU4ZZ Release Omentum, Percutaneous Endoscopic Approach (ICD-10-PCS; principal; 2020-12-11)
PROC: 031B0ZF Bypass Right Radial Artery to Lower Arm Vein, Open Approach (ICD-10-PCS; 2020-12-11)
DX: K66.0 Peritoneal adhesions (postprocedural) (postinfection) (principal); I13.11 Hypertensive heart and chronic kidney disease without heart failure, with stage 5 chronic kidney disease, or end stage renal disease; N18.6 End stage renal disease; J45.909 Unspecified asthma, uncomplicated; Z79.899 Other long term (current) drug therapy; Z99.2 Dependence on renal dialysis
CPT/HCPCS: 80048; 85025; J0171; J0690; J1644; J2001; J2405; J2704; J2720; J3010; Q9967; S0020

== ENCOUNTER 2021-03-26 16:09 | Outpatient (CLI) | payer MEDICARE ==
[2021-03-27 01:32] LABS: SARS-CoV-2 PCR by NAA Not Detected (NotDetected)
== END 2021-03-26 16:10 | disposition home or self-care (01) ==
LOC: LABBT 16:09
PROVIDERS: ATTEND Specialist
DX: Z01.812 Encounter for preprocedural laboratory examination (principal); N18.6 End stage renal disease; T82.590A Other mechanical complication of surgically created arteriovenous fistula, initial encounter; Z20.822 Contact with and (suspected) exposure to COVID-19
CPT/HCPCS: U0003; U0005; 87635

== ENCOUNTER 2021-03-30 07:34 | Day surgery (SDC) | payer MEDICARE ==
[2021-03-28 15:22] VITALS: BMI 25.7
[2021-03-30] MEDS ORDERED: Fentanyl 100 MCG/2 ML VIAL ONE (08:24)
[2021-03-30] MEDS ORDERED: Propofol 500 MG/50 ML VIAL ONE (08:30)
[2021-03-30] MEDS ORDERED: Bupivacaine 0.25% HCL 30 ML VIAL ONE (08:34)
[2021-03-30] MEDS ORDERED: Heparin 5,000 UNITS/ML VIAL ONE (08:34)
[2021-03-30] MEDS ORDERED: Protamine Sulfate 50 MG/5 ML VIAL ONE (08:34)
[2021-03-30] MEDS ORDERED: Lidocaine 1% w/Epinephrine 1:100K 20 ML VIAL ONE (08:34)
[2021-03-30 08:40] LABS: #Basophils 0.1 thou/uL (0.0-0.2); #Eosinphils 0.9 thou/uL (0.0-0.7); #Lymphocytes 1.9 thou/uL (1.20-3.40); #Monocytes 0.8 thou/uL (0.11-0.59); %Basophils 0.8 % (0.0-1.0); %Eosinophils 9.4 % (0.0-10.0); %Lymphocytes 19.8 % (21.0-51.0); %Monocytes 8.2 % (0.0-10.0); %Neutrophils 61.8 % (42.0-75.0); Hemoglobin 10.4 g/dL (14.0-18.0); Mean Corpuscular HGB CONC 32.1 g/dL (32.0-36.0); Mean Corpuscular Volume 99.7 fL (78.0-98.0); Mean Platelet Volume 7.3 fL (7.4-10.4); Platelet Count 208 thou/uL (130-400); RBC Distribution Width 12.4 % (11.5-14.5); Red Blood Cell (RBC) Count 3.26 mill/uL (4.70-6.10); White Blood Cell (WBC) Count 9.7 thou/uL (4.8-10.8)
[2021-03-30 08:49] LABS: Anion Gap 16 mmol/L (10-20); BUN (Urea Nitrogen) 48 mg/dL (8.4-25.7); Calc. Creatinine Clearance 11 mL/min (70-130); Calcium 9.5 mg/dL (7.8-10.44); Carbon Dioxide 26 mmol/L (22-29); Chloride 105 mmol/L (98-107); Glucose 97 mg/dL (70-105); Potassium 5.5 mmol/L (3.5-5.1); Sodium 141 mmol/L (136-145)
[2021-03-30] MEDS ORDERED: Lidocaine 1% PF 5 ML VIAL ONE (09:42)
[2021-03-30] MEDS ORDERED: PROPOFOL 200 MG/20 ML VIAL ONE (09:42)
[2021-03-30] MEDS ORDERED: Bupivacaine PF 0.5% 30 ML VIAL ONE (09:42)
[2021-03-30] MEDS ORDERED: Ondansetron PF 4 MG/2 ML Vial ONE (09:42)
[2021-03-30] MEDS ORDERED: Heparin 1,000 UNITS/ML VIAL ONE ×2 (11:27→11:28)
== END 2021-03-30 11:39 | disposition home or self-care (01) ==
LOC: SDC 07:34
PROVIDERS: ATTEND Specialist
PROC: 031C0ZF Bypass Left Radial Artery to Lower Arm Vein, Open Approach (ICD-10-PCS; principal; 2021-03-30)
DX: I13.11 Hypertensive heart and chronic kidney disease without heart failure, with stage 5 chronic kidney disease, or end stage renal disease (principal); N18.6 End stage renal disease; T82.868A Thrombosis due to vascular prosthetic devices, implants and grafts, initial encounter; Z79.899 Other long term (current) drug therapy; Z95.810 Presence of automatic (implantable) cardiac defibrillator; Z99.2 Dependence on renal dialysis
CPT/HCPCS: 36415; 80048; 85025; J0690; J1644; J2405; J2704; J2720; J3010; S0020

== ENCOUNTER 2022-04-29 15:30 | Outpatient (CLI) | payer MEDICARE ==
[2022-04-29 16:22] LABS: Hemoglobin 8.3 g/dL (13.5-17.5); Mean Corpuscular HGB CONC 31.2 g/dL (32.0-36.0); Mean Corpuscular Hemoglobin 31.7 pg (27.0-33.0); Mean Corpuscular Volume 101.5 fl (81.2-95.1); Mean Platelet Volume 9.3 fl (7.4-10.4); Platelet Count 197 10x3/uL (150-450); Red Blood Cell (RBC) Count 2.62 10x6/uL (4.32-5.72); White Blood Cell (WBC) Count 11.7 10x3/uL (3.5-10.5)
[2022-04-29 16:41] LABS: Anion Gap 26 mmol/L (10-20); BUN (Urea Nitrogen) 74 mg/dL (8.4-25.7); Calc. Creatinine Clearance 0 mL/min (70-130); Calcium 9.5 mg/dL (7.8-10.44); Carbon Dioxide 26 mmol/L (22-29); Chloride 101 mmol/L (98-107); Glucose 112 mg/dL (70-105); Potassium 5.7 mmol/L (3.5-5.1); Sodium 147 mmol/L (136-145)
[2022-04-29 16:42] LABS: INR-International Normal Ratio 1.6; PTT 32.2 sec (22.0-33.0); Prothrombin Time 17.1 sec (9.5-12.1)
== END 2022-04-29 15:31 | disposition home or self-care (01) ==
LOC: LABBT 15:30
PROVIDERS: ATTEND Internal Medicine Cardiovascular Disease
DX: Z01.812 Encounter for preprocedural laboratory examination (principal); I48.0 Paroxysmal atrial fibrillation; Z20.822 Contact with and (suspected) exposure to COVID-19
CPT/HCPCS: 80048; 85027; 85610; 85730; U0003; U0005

== ENCOUNTER 2023-03-06 12:50 | Inpatient (IN) | payer MEDICARE ==
[2023-03-06] MEDS ORDERED: Ondansetron PF 4 MG/2 ML Vial IVP PRN (13:37)
[2023-03-06] MEDS ORDERED: Senokot S 8.6-50 MG TAB PO PRN (13:37)
[2023-03-06] MEDS ORDERED: Acetaminophen 325 MG TAB PO PRN (13:37)
[2023-03-06] MEDS ORDERED: Guaifenesin DM 100-10/5 ML UDCUP PO PRN (13:37)
[2023-03-06] MEDS ORDERED: Nitroglycerin 0.4 MG TAB (25 Tab Bottle) SL PRN (14:03)
[2023-03-06] MEDS: Sevelamer Carbonate 800 MG TAB PO SCH (18:01)
[2023-03-06] MEDS ORDERED: Communication Order-Pharmacy FS ONE (20:01)
[2023-03-06] MEDS: Metoprolol Tartrate 25 MG TAB PO SCH (20:55)
[2023-03-06] MEDS ORDERED: Apixaban 2.5 MG TAB PO SCH (21:00)
[2023-03-06] MEDS ORDERED: Enoxaparin 120 MG/0.8 ML SYRINGE SC SCH (21:00)
[2023-03-06 21:41] LABS: Hemoglobin 9.1 g/dL (14.0-18.0); Platelet Count 152 10x3/uL (130-400)
[2023-03-07] MEDS: Ipratropium 200 Puff Oral Inhaler INH SCH ×4 (00:14→18:22)
[2023-03-07] MEDS: Albuterol 200 PUFF (6.7GM INHALER) INH SCH ×4 (00:14→18:22)
[2023-03-07] MEDS ORDERED: Ipratropium/Albuterol 3 ML NEB NEB SCH (01:00)
[2023-03-07] MEDS: Levothyroxine Sodium 75 MCG TAB PO SCH (05:11)
[2023-03-07 05:37] LABS: #Eosinphils 0.6 thou/uL (0.0-0.7); #Lymphocytes 1.2 thou/uL (1.20-3.40); #Monocytes 0.7 thou/uL (0.11-0.59); #Neutrophils 6.1 thou/uL (1.40-6.50); %Basophils 0.5 % (0.0-1.0); %Eosinophils 6.6 % (0.0-10.0); %Lymphocytes 13.5 % (21.0-51.0); %Monocytes 8.4 % (0.0-10.0); Hemoglobin 9.1 g/dL (14.0-18.0); Mean Corpuscular HGB CONC 32.9 g/dL (32.0-36.0); Mean Corpuscular Hemoglobin 33.9 pg (27.0-31.0); Mean Platelet Volume 7.1 fL (7.4-10.4); Platelet Count 149 10x3/uL (130-400); RBC Distribution Width 14.7 % (11.5-14.5); White Blood Cell (WBC) Count 8.6 10x3/uL (4.8-10.8)
[2023-03-07 05:58] LABS: Anion Gap 14 mmol/L (10-20); BUN (Urea Nitrogen) 23 mg/dL (8.4-25.7); Calc. Creatinine Clearance 31 mL/min (70-130); Calcium 9.5 mg/dL (7.8-10.44); Carbon Dioxide 29 mmol/L (23-31); Cardiac Risk 2.1 (Less than 4.5); Chloride 101 mmol/L (98-107); Cholesterol 111 mg/dl (< 200 Desired); Estimated GFR 12; Glucose 89 mg/dL (80-115); HDL Cholesterol 52 mg/dL (>60 Neg Risk); LDL Cholesterol, Calculated 47 mg/dL; Potassium 3.5 mmol/L (3.5-5.1); Sodium 140 mmol/L (136-145); Triglycerides 60 mg/dL (Less than 150)
[2023-03-07 06:25] LABS: Digoxin 0.56 ng/mL (0.8-2.0)
[2023-03-07 08:18] LABS: Troponin I 0.102 ng/mL (< 0.028)
[2023-03-07] MEDS ORDERED: Enoxaparin 120 MG/0.8 ML SYRINGE SC SCH (09:00)
[2023-03-07] MEDS: QUEtiapine 25 MG TAB PO SCH (09:08)
[2023-03-07] MEDS: Metoprolol Tartrate 25 MG TAB PO SCH (09:08)
[2023-03-07] MEDS: Sevelamer Carbonate 800 MG TAB PO SCH ×3 (09:08→17:14)
[2023-03-07] MEDS ORDERED: EPOETIN ALFA-EPBX (ESRD) 10,000 UNIT/ML VIAL SC SCH (12:00)
[2023-03-07 15:52] LABS: HBSAg Index 0.82 S/CO (0-0.99); Hep B Surf Ag Non-Reactive S/CO (NonReactive)
[2023-03-07 16:31] VITALS: BMI 57.1
[2023-03-07 16:31] LABS: HBSAB Concentration 19.14 mIU/mL; Hep B Surf AB Reactive (NonReactive)
[2023-03-07] MEDS: Amiodarone 200 MG TAB PO SCH (21:01)
[2023-03-08] MEDS: Ipratropium 200 Puff Oral Inhaler INH SCH ×4 (00:05→19:26)
[2023-03-08] MEDS: Albuterol 200 PUFF (6.7GM INHALER) INH SCH ×4 (00:05→19:26)
[2023-03-08] MEDS: Levothyroxine Sodium 75 MCG TAB PO SCH (06:14)
[2023-03-08 08:13] LABS: Anion Gap 10 mmol/L (10-20); BUN (Urea Nitrogen) 19 mg/dL (8.4-25.7); Calc. Creatinine Clearance 14 mL/min (70-130); Calcium 9.5 mg/dL (7.8-10.44); Carbon Dioxide 30 mmol/L (23-31); Chloride 99 mmol/L (98-107); Estimated GFR 13; Glucose 101 mg/dL (80-115); Potassium 3.4 mmol/L (3.5-5.1); Sodium 136 mmol/L (136-145)
[2023-03-08] MEDS: Sevelamer Carbonate 800 MG TAB PO SCH ×3 (08:34→15:49)
[2023-03-08] MEDS: Apixaban 5 MG TAB PO SCH ×2 (08:35→19:40)
[2023-03-08] MEDS: Amiodarone 200 MG TAB PO SCH ×3 (08:35→19:40)
[2023-03-08] MEDS: QUEtiapine 25 MG TAB PO SCH (08:35)
[2023-03-09] MEDS: Levothyroxine Sodium 75 MCG TAB PO SCH (03:33)
[2023-03-09] MEDS: Albuterol 200 PUFF (6.7GM INHALER) INH SCH ×4 (03:38→18:52)
[2023-03-09] MEDS: Ipratropium 200 Puff Oral Inhaler INH SCH ×4 (03:39→18:52)
[2023-03-09 05:06] LABS: Hemoglobin 8.7 g/dL (14.0-18.0); Platelet Count 134 10x3/uL (130-400)
[2023-03-09 05:25] LABS: Anion Gap 12 mmol/L (10-20); BUN (Urea Nitrogen) 11 mg/dL (8.4-25.7); Calc. Creatinine Clearance 19 mL/min (70-130); Calcium 9.3 mg/dL (7.8-10.44); Carbon Dioxide 29 mmol/L (23-31); Chloride 100 mmol/L (98-107); Estimated GFR 18; Glucose 103 mg/dL (80-115); Potassium 3.4 mmol/L (3.5-5.1); Sodium 138 mmol/L (136-145)
[2023-03-09] MEDS ORDERED: EPOETIN ALFA-EPBX (ESRD) 10,000 UNIT/ML VIAL SC SCH (07:15)
[2023-03-09] MEDS: QUEtiapine 25 MG TAB PO SCH (08:43)
[2023-03-09] MEDS: Sevelamer Carbonate 800 MG TAB PO SCH ×3 (08:43→15:55)
[2023-03-09] MEDS: Amiodarone 200 MG TAB PO SCH ×3 (08:43→19:49)
[2023-03-09] MEDS: Apixaban 5 MG TAB PO SCH ×2 (08:43→19:49)
[2023-03-09] MEDS ORDERED: Potassium Chloride 20 MEQ TAB PO SCH (09:45)
[2023-03-09 10:19] LABS: Magnesium 2.1 mg/dL (1.6-2.6)
[2023-03-10] MEDS: Albuterol 200 PUFF (6.7GM INHALER) INH SCH ×4 (01:13→18:25)
[2023-03-10] MEDS: Ipratropium 200 Puff Oral Inhaler INH SCH ×4 (01:14→18:25)
[2023-03-10] MEDS: Levothyroxine Sodium 75 MCG TAB PO SCH (03:29)
[2023-03-10] MEDS: Sevelamer Carbonate 800 MG TAB PO SCH ×3 (08:31→16:34)
[2023-03-10] MEDS: Apixaban 5 MG TAB PO SCH ×2 (08:32→20:23)
[2023-03-10] MEDS: Amiodarone 200 MG TAB PO SCH ×3 (08:32→20:23)
[2023-03-10] MEDS: QUEtiapine 25 MG TAB PO SCH (08:32)
[2023-03-10] MEDS ORDERED: KETAMINE 100 MG/ML (5ML VIAL) ONE (11:12)
[2023-03-10] MEDS ORDERED: PROPOFOL 200 MG/20 ML VIAL ONE (11:22)
[2023-03-11] MEDS: Albuterol 200 PUFF (6.7GM INHALER) INH SCH ×3 (01:06→14:40)
[2023-03-11] MEDS: Ipratropium 200 Puff Oral Inhaler INH SCH ×3 (01:06→14:41)
[2023-03-11] MEDS: Levothyroxine Sodium 75 MCG TAB PO SCH (05:20)
[2023-03-11 05:26] LABS: #Basophils 0.1 thou/uL (0.0-0.2); #Eosinphils 0.6 thou/uL (0.0-0.7); #Lymphocytes 1.6 thou/uL (1.20-3.40); #Monocytes 0.9 thou/uL (0.11-0.59); %Basophils 0.5 % (0.0-1.0); %Eosinophils 5.4 % (0.0-10.0); %Lymphocytes 14.2 % (21.0-51.0); %Monocytes 7.7 % (0.0-10.0); %Neutrophils 72.1 % (42.0-75.0); Hemoglobin 9.5 g/dL (14.0-18.0); Mean Corpuscular HGB CONC 33.3 g/dL (32.0-36.0); Mean Corpuscular Hemoglobin 33.5 pg (27.0-31.0); Mean Platelet Volume 7.1 fL (7.4-10.4); Platelet Count 170 10x3/uL (130-400); RBC Distribution Width 14.6 % (11.5-14.5); Red Blood Cell (RBC) Count 2.82 mill/uL (4.70-6.10); White Blood Cell (WBC) Count 11.1 10x3/uL (4.8-10.8)
[2023-03-11 05:47] LABS: Anion Gap 14 mmol/L (10-20); BUN (Urea Nitrogen) 29 mg/dL (8.4-25.7); Calc. Creatinine Clearance 22 mL/min (70-130); Calcium 10.2 mg/dL (7.8-10.44); Carbon Dioxide 26 mmol/L (23-31); Chloride 101 mmol/L (98-107); Estimated GFR 9; Glucose 87 mg/dL (80-115); Potassium 3.6 mmol/L (3.5-5.1); Sodium 137 mmol/L (136-145)
[2023-03-11] MEDS ORDERED: Heparin 10,000 UNITS/ 10 ML VIAL ONE (08:19)
[2023-03-11 08:54] VITALS: BP 104/55; TEMP 98
[2023-03-11] MEDS: Apixaban 5 MG TAB PO SCH (10:07)
[2023-03-11] MEDS: Amiodarone 200 MG TAB PO SCH (10:07)
[2023-03-11] MEDS: Sevelamer Carbonate 800 MG TAB PO SCH ×2 (10:07→12:39)
[2023-03-11] MEDS: QUEtiapine 25 MG TAB PO SCH (10:08)
[2023-03-14] MEDS ORDERED: EPOETIN ALFA-EPBX (ESRD) 4,000 UNIT/ML VIAL SC SCH (09:00)
[2023-03-14] MEDS ORDERED: EPOETIN ALFA-EPBX (ESRD) 10,000 UNIT/ML VIAL SC SCH (09:00)
[2023-03-14] MEDS ORDERED: Amiodarone 200 MG TAB PO SCH (09:00)
== END 2023-03-11 16:34 | disposition home or self-care (01) | DRG 308 ==
LOC: INTOOBSV 13:16 → 2SW 13:16 → OBSVTOIN 03-07 15:32
PROVIDERS: ADMIT Hospitalist; ATTEND Internal Medicine
PROC: B246ZZ4 Ultrasonography of Right and Left Heart, Transesophageal (ICD-10-PCS; principal; 2023-03-10)
PROC: 5A2204Z Restoration of Cardiac Rhythm, Single (ICD-10-PCS; 2023-03-10)
DX: I48.19 Other persistent atrial fibrillation (principal); N18.6 End stage renal disease; I13.2 Hypertensive heart and chronic kidney disease with heart failure and with stage 5 chronic kidney disease, or end stage renal disease; Z68.41 Body mass index [BMI] 40.0-44.9, adult; N25.81 Secondary hyperparathyroidism of renal origin; I50.22 Chronic systolic (congestive) heart failure; I42.8 Other cardiomyopathies; E78.5 Hyperlipidemia, unspecified; K21.9 Gastro-esophageal reflux disease without esophagitis; E66.01 Morbid (severe) obesity due to excess calories; J45.909 Unspecified asthma, uncomplicated; I95.1 Orthostatic hypotension; R77.8 Other specified abnormalities of plasma proteins; E87.6 Hypokalemia; D63.1 Anemia in chronic kidney disease; I34.0 Nonrheumatic mitral (valve) insufficiency; Z99.2 Dependence on renal dialysis; Z95.810 Presence of automatic (implantable) cardiac defibrillator; Z88.5 Allergy status to narcotic agent; Z88.8 Allergy status to other drugs, medicaments and biological substances; Z79.01 Long term (current) use of anticoagulants; Z79.899 Other long term (current) drug therapy; Z90.49 Acquired absence of other specified parts of digestive tract; Z87.891 Personal history of nicotine dependence
CPT/HCPCS: 36415; 80048; 80061; 80162; 83735; 84443; 84484; 85014; 85018; 85025; 85049; 86706; 87340; 90935; 93005; 93010; 93306; 93312; 94664; 94760; G0257; J1650; J2704; Q5105

== ENCOUNTER 2023-12-20 15:49 | Inpatient (IN) | payer MEDICARE ==
[2023-12-20] MEDS ORDERED: Acetaminophen 325 MG TAB PO PRN (17:01)
[2023-12-20] MEDS ORDERED: Ondansetron PF 4 MG/2 ML Vial IVP PRN (17:01)
[2023-12-20 18:56] LABS: #Eosinphils 0.2 thou/uL (0.0-0.7); #Monocytes 1.1 thou/uL (0.11-0.59); #Neutrophils 5.9 thou/uL (1.40-6.50); %Basophils 0.5 % (0.0-1.0); %Eosinophils 2.4 % (0.0-10.0); %Lymphocytes 15.2 % (21.0-51.0); %Monocytes 13.2 % (0.0-10.0); %Neutrophils 68.4 % (42.0-75.0); Hematocrit 22.6 % (42.0-52.0); Hemoglobin 6.9 g/dL (14.0-18.0); Mean Corpuscular HGB CONC 30.5 g/dL (32.0-36.0); Mean Corpuscular Hemoglobin 28.9 pg (27.0-31.0); Mean Corpuscular Volume 94.6 fl (78.0-98.0); Mean Platelet Volume 10.7 fL (7.4-10.4); Platelet Count 128 10x3/uL (130-400); Red Blood Cell (RBC) Count 2.39 mill/uL (4.70-6.10); White Blood Cell (WBC) Count 8.7 10x3/uL (4.8-10.8)
[2023-12-20 19:19] LABS: Anion Gap 16 mmol/L (10-20); BUN (Urea Nitrogen) 49 mg/dL (8.4-25.7); Calc. Creatinine Clearance 0 mL/min (70-130); Calcium 9.1 mg/dL (7.8-10.44); Carbon Dioxide 28 mmol/L (23-31); Chloride 96 mmol/L (98-107); Estimated GFR 10; Glucose 99 mg/dL (80-115); Potassium 4.8 mmol/L (3.5-5.1); Sodium 135 mmol/L (136-145)
[2023-12-20] MEDS: Pantoprazole 40 MG VIAL IVP SCH (20:27)
[2023-12-20 21:30] VITALS: BMI 55.7
[2023-12-20] MEDS: Ipratropium/Albuterol 3 ML NEB NEB PRN (23:36)
[2023-12-21 04:36] LABS: #Eosinphils 0.3 thou/uL (0.0-0.7); #Monocytes 1.3 thou/uL (0.11-0.59); %Basophils 0.2 % (0.0-1.0); %Eosinophils 3.1 % (0.0-10.0); %Lymphocytes 13.4 % (21.0-51.0); %Monocytes 14.4 % (0.0-10.0); %Neutrophils 68.3 % (42.0-75.0); Hematocrit 22.2 % (42.0-52.0); Hemoglobin 6.8 g/dL (14.0-18.0); Mean Corpuscular HGB CONC 30.6 g/dL (32.0-36.0); Mean Corpuscular Hemoglobin 29.2 pg (27.0-31.0); Mean Corpuscular Volume 95.3 fl (78.0-98.0); Mean Platelet Volume 10.4 fL (7.4-10.4); Platelet Count 137 10x3/uL (130-400); Red Blood Cell (RBC) Count 2.33 mill/uL (4.70-6.10); White Blood Cell (WBC) Count 8.8 10x3/uL (4.8-10.8)
[2023-12-21 05:00] LABS: ALT (SGPT) 16 U/L (8-55); AST (SGOT) 24 U/L (5-34); Albumin 3.3 g/dL (3.4-4.8); Alkaline Phosphatase 81 U/L (40-110); Anion Gap 20 mmol/L (10-20); BUN (Urea Nitrogen) 55 mg/dL (8.4-25.7); Calc. Creatinine Clearance 31 mL/min (70-130); Carbon Dioxide 26 mmol/L (23-31); Chloride 95 mmol/L (98-107); Estimated GFR 9; Globulin 3.1 g/dL (2.4-3.5); Glucose 126 mg/dL (80-115); Potassium 5.1 mmol/L (3.5-5.1); Protein, Total 6.4 g/dL (5.8-8.1); Sodium 136 mmol/L (136-145)
[2023-12-21] MEDS ORDERED: Albumin 25% 25 GM (100 mL) BOT IVPB PRN (09:53)
[2023-12-21] MEDS: Midodrine HCl 5 MG TAB PO SCH ×2 (10:20→16:00)
[2023-12-21] MEDS: Pantoprazole 40 MG VIAL IVP SCH (10:20)
[2023-12-21] MEDS: Polyethylene Glycol 3350 17 GM Packet PO SCH (20:50)
[2023-12-22 05:18] LABS: Anion Gap 16 mmol/L (10-20); BUN (Urea Nitrogen) 44 mg/dL (8.4-25.7); Calc. Creatinine Clearance 35 mL/min (70-130); Calcium 9.2 mg/dL (7.8-10.44); Carbon Dioxide 31 mmol/L (23-31); Chloride 95 mmol/L (98-107); Estimated GFR 10; Glucose 100 mg/dL (80-115); Sodium 137 mmol/L (136-145)
[2023-12-22 06:27] LABS: #Eosinphils 0.4 thou/uL (0.0-0.7); #Monocytes 1.3 thou/uL (0.11-0.59); #Neutrophils 6.4 thou/uL (1.40-6.50); %Basophils 0.4 % (0.0-1.0); %Eosinophils 4.3 % (0.0-10.0); %Lymphocytes 12.1 % (21.0-51.0); %Monocytes 13.9 % (0.0-10.0); %Neutrophils 68.9 % (42.0-75.0); Hematocrit 24.9 % (42.0-52.0); Hemoglobin 7.4 g/dL (14.0-18.0); Mean Corpuscular HGB CONC 29.7 g/dL (32.0-36.0); Mean Corpuscular Volume 97.6 fl (78.0-98.0); Mean Platelet Volume 10.1 fL (7.4-10.4); Platelet Count 121 10x3/uL (130-400); RBC Distribution Width 18.6 % (11.5-14.5); Red Blood Cell (RBC) Count 2.55 mill/uL (4.70-6.10); White Blood Cell (WBC) Count 9.3 10x3/uL (4.8-10.8)
[2023-12-22] MEDS: Sevelamer Carbonate 800 MG TAB PO SCH (13:46)
[2023-12-22] MEDS: EPOETIN ALFA-EPBX (ESRD) 10,000 UNITS/ML VIAL SC SCH (15:36)
[2023-12-23 05:19] LABS: #Eosinphils 0.4 thou/uL (0.0-0.7); #Monocytes 1.3 thou/uL (0.11-0.59); #Neutrophils 6.8 thou/uL (1.40-6.50); %Basophils 0.4 % (0.0-1.0); %Eosinophils 3.6 % (0.0-10.0); %Lymphocytes 12.3 % (21.0-51.0); %Monocytes 13.7 % (0.0-10.0); %Neutrophils 69.6 % (42.0-75.0); Hematocrit 24.8 % (42.0-52.0); Hemoglobin 7.3 g/dL (14.0-18.0); Mean Corpuscular HGB CONC 29.4 g/dL (32.0-36.0); Mean Corpuscular Hemoglobin 28.6 pg (27.0-31.0); Mean Corpuscular Volume 97.3 fl (78.0-98.0); Mean Platelet Volume 10.3 fL (7.4-10.4); Platelet Count 135 10x3/uL (130-400); RBC Distribution Width 18.5 % (11.5-14.5); Red Blood Cell (RBC) Count 2.55 mill/uL (4.70-6.10); White Blood Cell (WBC) Count 9.8 10x3/uL (4.8-10.8)
[2023-12-23 05:45] LABS: Anion Gap 14 mmol/L (10-20); BUN (Urea Nitrogen) 35 mg/dL (8.4-25.7); Calc. Creatinine Clearance 39 mL/min (70-130); Carbon Dioxide 28 mmol/L (23-31); Chloride 97 mmol/L (98-107); Estimated GFR 12; Glucose 101 mg/dL (80-115); Potassium 4.7 mmol/L (3.5-5.1); Sodium 134 mmol/L (136-145)
[2023-12-23] MEDS: Levothyroxine Sodium 75 MCG TAB PO SCH (06:50)
[2023-12-23] MEDS: FLUoxetine HCl 20 MG CAP PO SCH (09:19)
[2023-12-23] MEDS: Sevelamer Carbonate 800 MG TAB PO SCH (11:12)
[2023-12-23] MEDS: Amiodarone 200 MG TAB PO SCH (15:20)
[2023-12-24 04:54] LABS: #Eosinphils 0.3 thou/uL (0.0-0.7); #Monocytes 1.2 thou/uL (0.11-0.59); %Basophils 0.3 % (0.0-1.0); %Eosinophils 3.3 % (0.0-10.0); %Lymphocytes 9.9 % (21.0-51.0); %Monocytes 12.7 % (0.0-10.0); %Neutrophils 73.4 % (42.0-75.0); Hematocrit 24.6 % (42.0-52.0); Hemoglobin 7.4 g/dL (14.0-18.0); Mean Corpuscular HGB CONC 30.1 g/dL (32.0-36.0); Mean Corpuscular Volume 96.5 fl (78.0-98.0); Mean Platelet Volume 10.3 fL (7.4-10.4); Platelet Count 130 10x3/uL (130-400); RBC Distribution Width 18.2 % (11.5-14.5); Red Blood Cell (RBC) Count 2.55 mill/uL (4.70-6.10); White Blood Cell (WBC) Count 9.5 10x3/uL (4.8-10.8)
[2023-12-24 05:23] LABS: Anion Gap 15 mmol/L (10-20); BUN (Urea Nitrogen) 46 mg/dL (8.4-25.7); Calc. Creatinine Clearance 32 mL/min (70-130); Calcium 9.4 mg/dL (7.8-10.44); Carbon Dioxide 29 mmol/L (23-31); Chloride 96 mmol/L (98-107); Estimated GFR 9; Glucose 105 mg/dL (80-115); Potassium 4.8 mmol/L (3.5-5.1); Sodium 135 mmol/L (136-145)
[2023-12-24] MEDS: methylPREDNISolone Sod Succ 40 MG VIAL IVP SCH ×2 (11:18→20:29)
[2023-12-24] MEDS ORDERED: Sodium Bicarbonate 2.5 MEQ/5 ML SDV ONE (12:23)
[2023-12-24] MEDS ORDERED: Sodium Chloride 0.9% 500 ML ONE (12:23)
[2023-12-24] MEDS ORDERED: Iopamidol 100 ML FS ONE ×2 (12:23→14:03)
[2023-12-24] MEDS: Ipratropium/Albuterol 3 ML NEB IPPB SCH (14:21)
[2023-12-25 06:32] LABS: #Monocytes 0.2 thou/uL (0.11-0.59); #Neutrophils 5.6 thou/uL (1.40-6.50); %Lymphocytes 5.4 % (21.0-51.0); %Monocytes 3.1 % (0.0-10.0); %Neutrophils 91.2 % (42.0-75.0); Hematocrit 23.3 % (42.0-52.0); Hemoglobin 6.9 g/dL (14.0-18.0); Mean Corpuscular HGB CONC 29.6 g/dL (32.0-36.0); Mean Corpuscular Hemoglobin 28.6 pg (27.0-31.0); Mean Corpuscular Volume 96.7 fl (78.0-98.0); Mean Platelet Volume 9.8 fL (7.4-10.4); Platelet Count 117 10x3/uL (130-400); RBC Distribution Width 18.3 % (11.5-14.5); Red Blood Cell (RBC) Count 2.41 mill/uL (4.70-6.10); White Blood Cell (WBC) Count 6.1 10x3/uL (4.8-10.8)
[2023-12-25 07:02] LABS: Anion Gap 15 mmol/L (10-20); BUN (Urea Nitrogen) 35 mg/dL (8.4-25.7); Calc. Creatinine Clearance 39 mL/min (70-130); Calcium 9.2 mg/dL (7.8-10.44); Carbon Dioxide 28 mmol/L (23-31); Chloride 97 mmol/L (98-107); Estimated GFR 12; Glucose 119 mg/dL (80-115); Potassium 4.7 mmol/L (3.5-5.1); Sodium 135 mmol/L (136-145)
[2023-12-25] MEDS: methylPREDNISolone Sod Succ 40 MG VIAL IVP SCH (07:42)
[2023-12-26 06:50] LABS: #Monocytes 0.4 thou/uL (0.11-0.59); #Neutrophils 7.8 thou/uL (1.40-6.50); %Lymphocytes 4.6 % (21.0-51.0); %Monocytes 4.9 % (0.0-10.0); %Neutrophils 89.8 % (42.0-75.0); Hematocrit 26.2 % (42.0-52.0); Mean Corpuscular HGB CONC 30.5 g/dL (32.0-36.0); Mean Corpuscular Hemoglobin 29.1 pg (27.0-31.0); Mean Corpuscular Volume 95.3 fl (78.0-98.0); Mean Platelet Volume 10.2 fL (7.4-10.4); Platelet Count 111 10x3/uL (130-400); RBC Distribution Width 18.6 % (11.5-14.5); Red Blood Cell (RBC) Count 2.75 mill/uL (4.70-6.10); White Blood Cell (WBC) Count 8.7 10x3/uL (4.8-10.8)
[2023-12-26 07:23] LABS: Anion Gap 18 mmol/L (10-20); BUN (Urea Nitrogen) 56 mg/dL (8.4-25.7); Calc. Creatinine Clearance 30 mL/min (70-130); Calcium 9.4 mg/dL (7.8-10.44); Carbon Dioxide 26 mmol/L (23-31); Chloride 95 mmol/L (98-107); Estimated GFR 9; Glucose 139 mg/dL (80-115); Potassium 4.9 mmol/L (3.5-5.1); Sodium 134 mmol/L (136-145)
[2023-12-26] MEDS: methylPREDNISolone Sod Succ 40 MG VIAL IVP SCH (20:56)
[2023-12-27 17:54] LABS: #Monocytes 0.7 thou/uL (0.11-0.59); #Neutrophils 8.4 thou/uL (1.40-6.50); %Monocytes 6.9 % (0.0-10.0); %Neutrophils 89.6 % (42.0-75.0); Hematocrit 28.8 % (42.0-52.0); Hemoglobin 8.6 g/dL (14.0-18.0); Mean Corpuscular HGB CONC 29.9 g/dL (32.0-36.0); Mean Corpuscular Hemoglobin 28.8 pg (27.0-31.0); Mean Corpuscular Volume 96.3 fl (78.0-98.0); Mean Platelet Volume 10.9 fL (7.4-10.4); Platelet Count 102 10x3/uL (130-400); RBC Distribution Width 18.1 % (11.5-14.5); Red Blood Cell (RBC) Count 2.99 mill/uL (4.70-6.10); White Blood Cell (WBC) Count 9.4 10x3/uL (4.8-10.8)
[2023-12-27 18:28] LABS: Anion Gap 21 mmol/L (10-20); BUN (Urea Nitrogen) 53 mg/dL (8.4-25.7); Calc. Creatinine Clearance 33 mL/min (70-130); Calcium 9.6 mg/dL (7.8-10.44); Carbon Dioxide 23 mmol/L (23-31); Chloride 95 mmol/L (98-107); Estimated GFR 10; Glucose 129 mg/dL (80-115); Potassium 4.6 mmol/L (3.5-5.1); Sodium 134 mmol/L (136-145)
[2023-12-27] MEDS: Apixaban 5 MG TAB PO SCH (21:34)
[2023-12-28 07:27] LABS: Anion Gap 16 mmol/L (10-20); BUN (Urea Nitrogen) 61 mg/dL (8.4-25.7); Calc. Creatinine Clearance 29 mL/min (70-130); Calcium 9.4 mg/dL (7.8-10.44); Carbon Dioxide 29 mmol/L (23-31); Chloride 95 mmol/L (98-107); Estimated GFR 8; Glucose 145 mg/dL (80-115); Potassium 4.9 mmol/L (3.5-5.1); Sodium 135 mmol/L (136-145)
[2023-12-28 07:46] LABS: #Monocytes 0.6 thou/uL (0.11-0.59); #Neutrophils 7.2 thou/uL (1.40-6.50); %Basophils 0.1 % (0.0-1.0); %Lymphocytes 4.1 % (21.0-51.0); %Monocytes 7.5 % (0.0-10.0); %Neutrophils 87.5 % (42.0-75.0); Hematocrit 28.7 % (42.0-52.0); Hemoglobin 8.7 g/dL (14.0-18.0); Mean Corpuscular HGB CONC 30.3 g/dL (32.0-36.0); Mean Corpuscular Hemoglobin 28.8 pg (27.0-31.0); Platelet Count 103 10x3/uL (130-400); RBC Distribution Width 17.9 % (11.5-14.5); Red Blood Cell (RBC) Count 3.02 mill/uL (4.70-6.10); White Blood Cell (WBC) Count 8.3 10x3/uL (4.8-10.8)
[2023-12-29 06:08] LABS: #Monocytes 0.5 thou/uL (0.11-0.59); #Neutrophils 8.6 thou/uL (1.40-6.50); %Lymphocytes 3.3 % (21.0-51.0); %Monocytes 4.9 % (0.0-10.0); %Neutrophils 91.2 % (42.0-75.0); Hemoglobin 8.7 g/dL (14.0-18.0); Mean Corpuscular Hemoglobin 28.9 pg (27.0-31.0); Mean Corpuscular Volume 96.3 fl (78.0-98.0); Mean Platelet Volume 11.1 fL (7.4-10.4); RBC Distribution Width 17.9 % (11.5-14.5); Red Blood Cell (RBC) Count 3.01 mill/uL (4.70-6.10); White Blood Cell (WBC) Count 9.4 10x3/uL (4.8-10.8)
[2023-12-29 06:26] LABS: Platelet Count 86 10x3/uL (130-400)
[2023-12-29 06:31] LABS: Anion Gap 19 mmol/L (10-20); BUN (Urea Nitrogen) 51 mg/dL (8.4-25.7); Calc. Creatinine Clearance 34 mL/min (70-130); Calcium 9.5 mg/dL (7.8-10.44); Carbon Dioxide 25 mmol/L (23-31); Chloride 96 mmol/L (98-107); Estimated GFR 10; Glucose 137 mg/dL (80-115); Potassium 4.7 mmol/L (3.5-5.1); Sodium 135 mmol/L (136-145)
[2023-12-29] MEDS: Ipratropium/Albuterol 3 ML NEB NEB PRN (18:44)
[2023-12-30 06:04] LABS: #Monocytes 0.5 thou/uL (0.11-0.59); #Neutrophils 8.6 thou/uL (1.40-6.50); %Lymphocytes 3.4 % (21.0-51.0); %Monocytes 5.2 % (0.0-10.0); Hemoglobin 8.8 g/dL (14.0-18.0); Mean Corpuscular HGB CONC 29.3 g/dL (32.0-36.0); Mean Corpuscular Hemoglobin 28.4 pg (27.0-31.0); Mean Corpuscular Volume 96.8 fl (78.0-98.0); Mean Platelet Volume 10.5 fL (7.4-10.4); RBC Distribution Width 17.5 % (11.5-14.5); White Blood Cell (WBC) Count 9.4 10x3/uL (4.8-10.8)
[2023-12-30 06:23] LABS: Anion Gap 15 mmol/L (10-20); BUN (Urea Nitrogen) 44 mg/dL (8.4-25.7); Calc. Creatinine Clearance 41 mL/min (70-130); Calcium 9.6 mg/dL (7.8-10.44); Carbon Dioxide 28 mmol/L (23-31); Chloride 98 mmol/L (98-107); Estimated GFR 13; Glucose 143 mg/dL (80-115); Potassium 4.6 mmol/L (3.5-5.1); Sodium 136 mmol/L (136-145)
[2023-12-30 06:43] LABS: Platelet Count 80 10x3/uL (130-400)
[2023-12-31 06:30] LABS: #Monocytes 0.5 thou/uL (0.11-0.59); #Neutrophils 9.1 thou/uL (1.40-6.50); %Lymphocytes 3.1 % (21.0-51.0); %Monocytes 4.9 % (0.0-10.0); %Neutrophils 91.5 % (42.0-75.0); Hematocrit 28.9 % (42.0-52.0); Hemoglobin 8.7 g/dL (14.0-18.0); Mean Corpuscular HGB CONC 30.1 g/dL (32.0-36.0); Mean Corpuscular Hemoglobin 28.6 pg (27.0-31.0); Mean Corpuscular Volume 95.1 fl (78.0-98.0); RBC Distribution Width 17.4 % (11.5-14.5); Red Blood Cell (RBC) Count 3.04 mill/uL (4.70-6.10); White Blood Cell (WBC) Count 9.9 10x3/uL (4.8-10.8)
[2023-12-31 06:35] LABS: Platelet Count 84 10x3/uL (130-400)
[2023-12-31 06:51] LABS: Anion Gap 17 mmol/L (10-20); BUN (Urea Nitrogen) 66 mg/dL (8.4-25.7); Calc. Creatinine Clearance 33 mL/min (70-130); Calcium 9.4 mg/dL (7.8-10.44); Carbon Dioxide 27 mmol/L (23-31); Chloride 98 mmol/L (98-107); Estimated GFR 10; Glucose 131 mg/dL (80-115); Potassium 5.1 mmol/L (3.5-5.1); Sodium 137 mmol/L (136-145)
[2024-01-02] MEDS: Heparin 5,000 UNITS/ML VIAL SC SCH (00:17)
[2024-01-02 04:53] LABS: #Monocytes 0.6 thou/uL (0.11-0.59); #Neutrophils 8.9 thou/uL (1.40-6.50); %Basophils 0.1 % (0.0-1.0); %Lymphocytes 2.5 % (21.0-51.0); %Monocytes 6.1 % (0.0-10.0); %Neutrophils 90.3 % (42.0-75.0); Hematocrit 29.3 % (42.0-52.0); Hemoglobin 8.9 g/dL (14.0-18.0); Mean Corpuscular HGB CONC 30.4 g/dL (32.0-36.0); Mean Corpuscular Hemoglobin 28.4 pg (27.0-31.0); Mean Corpuscular Volume 93.6 fl (78.0-98.0); Mean Platelet Volume 10.5 fL (7.4-10.4); RBC Distribution Width 17.5 % (11.5-14.5); Red Blood Cell (RBC) Count 3.13 mill/uL (4.70-6.10); White Blood Cell (WBC) Count 9.9 10x3/uL (4.8-10.8)
[2024-01-02 05:01] LABS: Platelet Count 86 10x3/uL (130-400)
[2024-01-02 05:15] LABS: Anion Gap 14 mmol/L (10-20); BUN (Urea Nitrogen) 79 mg/dL (8.4-25.7); Calc. Creatinine Clearance 30 mL/min (70-130); Carbon Dioxide 30 mmol/L (23-31); Chloride 96 mmol/L (98-107); Potassium 5.3 mmol/L (3.5-5.1); Sodium 135 mmol/L (136-145)
[2024-01-02 05:16] LABS: Calcium 9.2 mg/dL (7.8-10.44); Estimated GFR 9; Glucose 139 mg/dL (80-115)
[2024-01-02] MEDS ORDERED: Heparin 10,000 UNITS/ 10 ML VIAL ONE (06:39)
[2024-01-02] MEDS ORDERED: DOPamine 400 MG/D5W 250 ML 250 ML ONE (06:39)
[2024-01-02] MEDS ORDERED: Gentamicin 80 MG/2 ML VIAL ONE (06:39)
[2024-01-02] MEDS ORDERED: Lidocaine 1% (PF) 30 ML VIAL ONE (06:39)
[2024-01-02] MEDS ORDERED: CEFAZOLIN 2 GM VIAL ONE (06:39)
[2024-01-02] MEDS ORDERED: Phenylephrine 40 MG/NS 250 ML 250 ML ONE (11:58)
[2024-01-02] MEDS ORDERED: fentaNYL 50 mcg/mL 1 mL Vial ONE (11:59)
[2024-01-02] MEDS ORDERED: Vasopressin 20 UNITS/ML VIAL ONE (11:59)
[2024-01-02] MEDS ORDERED: Ketamine In 0.9 % NaCl 50 MG/5 ML SYRINGE ONE (12:31)
[2024-01-02] MEDS ORDERED: Etomidate 40 MG (20 mL) VIAL ONE (12:32)
[2024-01-02] MEDS ORDERED: SUGAMMADEX SODIUM 200 MG/2 ML VIAL ONE (12:49)
[2024-01-02] MEDS ORDERED: Acetaminophen 325 MG TAB PO PRN (13:02)
[2024-01-02] MEDS ORDERED: Iopamidol 370 76% 100 ML VIAL ONE (13:37)
[2024-01-02] MEDS ORDERED: Midazolam HCl 2 mg/2 ml Vial ONE (13:45)
[2024-01-02] MEDS ORDERED: Albumin 5% 500 ML ONE (16:22)
[2024-01-02 16:49] LABS: Hemoglobin 8.4 g/dL (14.0-18.0)
[2024-01-02] MEDS ORDERED: Albuterol 200 PUFF (6.7GM INHALER) ONE (16:57)
[2024-01-02 18:02] LABS: Anion Gap 14 mmol/L (10-20); Carbon Dioxide 31 mmol/L (23-31); Chloride 96 mmol/L (98-107); Potassium 5.2 mmol/L (3.5-5.1); Sodium 136 mmol/L (136-145)
[2024-01-02] MEDS ORDERED: CEFAZOLIN 1 GM VIAL ONE (18:03)
[2024-01-02] MEDS ORDERED: Rocuronium Bromide 10 MG/ML (10ML VIAL) ONE (18:21)
[2024-01-02] MEDS ORDERED: Ventilator Sedation Protocol 1 EACH FS SCH (19:29)
[2024-01-02] MEDS: Propofol 1,000 MG/100 ML VIAL IV PRN (19:30)
[2024-01-02] MEDS ORDERED: Propofol BOLUS 1,000 MG/100 ML VIAL IV PRN (19:45)
[2024-01-02] MEDS ORDERED: DISCONTINUE PREVIOUS NARCOTIC PAIN MEDICATIONS AND BENZODIAZEPINES FS SCH (19:45)
[2024-01-02] MEDS ORDERED: Morphine 2 MG/ML VIAL SLOW IVP PRN (19:45)
[2024-01-02] MEDS ORDERED: Fentanyl BOLUS 250 ML IVPB PRN (19:45)
[2024-01-02] MEDS ORDERED: Lorazepam 2 MG/ML VIAL SLOW IVP PRN (19:45)
[2024-01-02] MEDS ORDERED: Glucagon 1 MG/ML KIT IM PRN (19:46)
[2024-01-02] MEDS ORDERED: Dextrose 50% Abboject 50 ML SYRINGE SLOW IVP PRN (19:46)
[2024-01-02] MEDS ORDERED: Dextrose 5% in Water 1,000 ML IV PRN (19:46)
[2024-01-02] MEDS: Fentanyl CADD 100 ML IV SCH (19:50)
[2024-01-02 19:51] LABS: Actual Bicarbonate (HCO3a) 28.6 mEq/L (22-28); Base Excess (BEa) 1.7 mEq/L (-2.0 to +3.0); Calcium, Ionized (arterial) 1.06 mmol/L (1.12-1.30); Carboxyhemoglobin (COHb) 1.2 gm% (0.0-3.0); Hematocrit-ABG 27 % (42.0-52.0); Hemoglobin (Hb) 9.2 g/dL (14.0-18.0); O2 Tension (PaO2), arterial 105.4 mmHg (> 80.0); Potassium - ABG Lab 5.05 mmol/L (3.70-5.30); Puncture Site RRA; pH, Arterial 7.311 (7.35-7.45)
[2024-01-02] MEDS: Propofol 1,000 MG/100 ML VIAL IV ONE (20:29)
[2024-01-02] MEDS: Vecuronium Bromide 50 MG in Sodium Chloride 0.9% 250 ML 250 ML IV SCH (20:31)
[2024-01-02] MEDS: Cephalexin 250 MG CAP PO SCH (22:00)
[2024-01-02] MEDS: CEFAZOLIN 1 GM in Sodium Chloride 0.9% 100 ML IVPB SCH (22:07)
[2024-01-02 22:16] LABS: #Monocytes 2.1 thou/uL (0.11-0.59); %Basophils 0.1 % (0.0-1.0); %Lymphocytes 2.7 % (21.0-51.0); %Monocytes 13.3 % (0.0-10.0); %Neutrophils 82.6 % (42.0-75.0); Hematocrit 23.5 % (42.0-52.0); Hemoglobin 7.4 g/dL (14.0-18.0); Mean Corpuscular HGB CONC 31.5 g/dL (32.0-36.0); Mean Corpuscular Hemoglobin 29.6 pg (27.0-31.0); Mean Platelet Volume 10.9 fL (7.4-10.4); Platelet Count 108 10x3/uL (130-400); RBC Distribution Width 16.9 % (11.5-14.5); White Blood Cell (WBC) Count 15.7 10x3/uL (4.8-10.8)
[2024-01-02] MEDS: Ipratropium/Albuterol 3 ML NEB NEB SCH (23:27)
[2024-01-03 04:20] LABS: #Neutrophils 10.5 thou/uL (1.40-6.50); %Basophils 0.1 % (0.0-1.0); %Lymphocytes 2.6 % (21.0-51.0); %Neutrophils 87.6 % (42.0-75.0); Hematocrit 24.5 % (42.0-52.0); Hemoglobin 7.9 g/dL (14.0-18.0); Mean Corpuscular HGB CONC 32.2 g/dL (32.0-36.0); Mean Corpuscular Hemoglobin 29.7 pg (27.0-31.0); Mean Corpuscular Volume 92.1 fl (78.0-98.0); Mean Platelet Volume 10.4 fL (7.4-10.4); RBC Distribution Width 16.6 % (11.5-14.5); Red Blood Cell (RBC) Count 2.66 mill/uL (4.70-6.10); White Blood Cell (WBC) Count 11.9 10x3/uL (4.8-10.8)
[2024-01-03 04:21] LABS: Platelet Count 74 10x3/uL (130-400)
[2024-01-03 04:45] LABS: ALT (SGPT) 9 U/L (8-55); AST (SGOT) 19 U/L (5-34); Albumin 3.2 g/dL (3.4-4.8); Alkaline Phosphatase 51 U/L (40-110); Anion Gap 16 mmol/L (10-20); BUN (Urea Nitrogen) 73 mg/dL (8.4-25.7); Bilirubin, Total 3.3 mg/dL (0.2-1.2); Calc. Creatinine Clearance 34 mL/min (70-130); Calcium 8.7 mg/dL (7.8-10.44); Carbon Dioxide 26 mmol/L (23-31); Chloride 99 mmol/L (98-107); Estimated GFR 10; Globulin 2.1 g/dL (2.4-3.5); Glucose 117 mg/dL (80-115); Potassium 4.6 mmol/L (3.5-5.1); Protein, Total 5.3 g/dL (5.8-8.1); Sodium 136 mmol/L (136-145)
[2024-01-03] MEDS: Phenylephrine 40 MG/NS 250 ML 250 ML IVPB SCH (06:25)
[2024-01-03 07:29] LABS: Actual Bicarbonate (HCO3a) 23.7 mEq/L (22-28); Base Excess (BEa) -0.3 mEq/L (-2.0 to +3.0); CO2 Tension 35.8 mmHg (35.0-45.0); Calcium, Ionized (arterial) 1.06 mmol/L (1.12-1.30); Hematocrit-ABG 26 % (42.0-52.0); Hemoglobin (Hb) 8.8 g/dL (14.0-18.0); O2 Tension (PaO2), arterial 118.2 mmHg (> 80.0); Potassium - ABG Lab 4.43 mmol/L (3.70-5.30); pH, Arterial 7.438 (7.35-7.45)
[2024-01-03 07:50] LABS: Puncture Site RRAP
[2024-01-03] MEDS: Amiodarone 200 MG TAB PO SCH (09:32)
[2024-01-03] MEDS: Ipratropium/Albuterol 3 ML NEB NEB SCH (10:30)
[2024-01-03] MEDS: CEFAZOLIN 1 GM in Sodium Chloride 0.9% 100 ML IVPB SCH (17:35)
[2024-01-03 18:39] VITALS: BP 84/42
[2024-01-04 00:25] LABS: HBSAg Index 0.16 S/CO (0-0.99); Hep B Surf Ag Non-Reactive S/CO (NonReactive)
[2024-01-04 00:27] LABS: HBSAB Concentration 29.25 mIU/mL; Hep B Surf AB Reactive (NonReactive)
[2024-01-04] MEDS: Ipratropium/Albuterol 3 ML NEB NEB PRN (01:55)
[2024-01-04 02:29] LABS: Actual Bicarbonate (HCO3a) 27.5 mEq/L (22-28); Base Excess (BEa) -1.3 mEq/L (-2.0 to +3.0); Calcium, Ionized (arterial) 1.12 mmol/L (1.12-1.30); Carboxyhemoglobin (COHb) 1.7 gm% (0.0-3.0); Hematocrit-ABG 32 % (42.0-52.0); Hemoglobin (Hb) 10.8 g/dL (14.0-18.0); O2 Tension (PaO2), arterial 73.1 mmHg (> 80.0); Potassium - ABG Lab 4.28 mmol/L (3.70-5.30)
[2024-01-04 02:30] LABS: Puncture Site RRA
[2024-01-04 02:31] LABS: ALV-art Gradient 554.025 mmHg (0-20)
[2024-01-04] MEDS: Albumin 25% 25 GM (100 mL) BOT IVPB SCH (03:22)
[2024-01-04] MEDS: NOREPINEPHRINE 8 MG/250 ML-D5W 250 ML IVPB SCH (04:20)
[2024-01-04 04:28] LABS: Hemoglobin 10.2 g/dL (14.0-18.0); Manual Diff?? YES; Mean Corpuscular HGB CONC 30.9 g/dL (32.0-36.0); Mean Corpuscular Hemoglobin 29.2 pg (27.0-31.0); Mean Corpuscular Volume 94.6 fl (78.0-98.0); Mean Platelet Volume 10.8 fL (7.4-10.4); RBC Distribution Width 17.2 % (11.5-14.5); Red Blood Cell (RBC) Count 3.49 mill/uL (4.70-6.10); White Blood Cell (WBC) Count 20.6 10x3/uL (4.8-10.8)
[2024-01-04 04:29] LABS: Platelet Count 68 10x3/uL (130-400)
[2024-01-04 04:30] LABS: Delete Auto Diff?? YES
[2024-01-04] MEDS: Vecuronium 10 MG VIAL IVP SCH ×2 (04:50→07:36)
[2024-01-04 04:53] LABS: ALT (SGPT) Less than 7 U/L (8-55); AST (SGOT) 15 U/L (5-34); Albumin 3.8 g/dL (3.4-4.8); Alkaline Phosphatase 61 U/L (40-110); Anion Gap 13 mmol/L (10-20); BUN (Urea Nitrogen) 56 mg/dL (8.4-25.7); Calc. Creatinine Clearance 36 mL/min (70-130); Calcium 8.8 mg/dL (7.8-10.44); Carbon Dioxide 28 mmol/L (23-31); Chloride 98 mmol/L (98-107); Estimated GFR 12; Globulin 2.4 g/dL (2.4-3.5); Glucose 69 mg/dL (80-115); Potassium 4.4 mmol/L (3.5-5.1); Protein, Total 6.2 g/dL (5.8-8.1); Sodium 135 mmol/L (136-145)
[2024-01-04] MEDS: Sodium Bicarb 50 mEq/50 ML VIAL IVP SCH (05:00)
[2024-01-04] MEDS: Sodium Bicarb 50 mEq/50 ML VIAL ONE (05:06)
[2024-01-04] MEDS: NOREPINEPHRINE 8 MG/250 ML-D5W 250 ML ONE (05:06)
[2024-01-04] MEDS: Vecuronium 10 MG VIAL ONE (05:06)
[2024-01-04 05:19] LABS: Anisocytosis SLIGHT = 6-15 cells HPF (0-5); Band 30 % (5-11); CellaVision Operator ID LAB.CLH1; Eosinophils 1 % (0-10); Hypochromia SLIGHT = 6-15 cells HPF (0-5); Lymphocytes 2 % (21-51); Metamyelocyte 4 % (0-0); Monocytes 9 % (0-10); Neutrophil 53 % (42-75); Platelet Adequacy Comment Platelets Decreased; Polychromasia MODERATE = 3-4 cells HPF (0-2); Reactive Lymphocytes 1 % (0-10); Total Cell Count 106
[2024-01-04 05:21] LABS: Platelet Count 74 10x3/uL (130-400)
[2024-01-04 05:33] LABS: INR-International Normal Ratio 1.4; PTT 26.9 sec (22.9-36.1); Prothrombin Time 17.5 sec (12.0-14.7)
[2024-01-04 05:34] LABS: Fibrinogen 223 mg/dL (253-463)
[2024-01-04 05:43] LABS: D-Dimer Test 7.09 mcg/mL (0.27-0.43)
[2024-01-04] MEDS: Vasopressin 20 UNITS in Sodium Chloride 0.9% 50 ML IV SCH (05:49)
[2024-01-04] MEDS: EPINEPHrine 4 MG in Dextrose 5% in Water 250 ML IVP SCH (06:24)
[2024-01-04 07:30] VITALS: TEMP 97.8
[2024-01-04] MEDS: Sterile Water 10 ML ONE (07:36)
[2024-01-04 07:57] LABS: Actual Bicarbonate (HCO3a) 23.6 mEq/L (22-28); Base Excess (BEa) -8.3 mEq/L (-2.0 to +3.0); Calcium, Ionized (arterial) 1.13 mmol/L (1.12-1.30); Carboxyhemoglobin (COHb) 1.6 gm% (0.0-3.0); Hematocrit-ABG 35 % (42.0-52.0); Potassium - ABG Lab 4.92 mmol/L (3.70-5.30)
[2024-01-04 07:58] LABS: CO2 Tension 88.2 mmHg (35.0-45.0); pH, Arterial 7.046 (7.35-7.45)
[2024-01-04 07:59] LABS: O2 Tension (PaO2), arterial 34.5 mmHg (> 80.0); Puncture Site RBA
[2024-01-04] MEDS ORDERED: Phenylephrine 40 MG in Sodium Chloride 0.9% 250 ML 250 ML IV SCH (08:45)
[2024-01-05 12:55] LABS: CO2 Tension 68.7 mmHg (35.0-45.0)
== END 2024-01-04 09:33 | disposition expired | DRG 276 ==
LOC: ERS 15:49 → 2NO 16:59 → OBSVTOIN 12-21 09:55 → CCU 01-02 19:20
PROVIDERS: ADMIT Internal Medicine; ATTEND Hospitalist
PROC: 30233N1 Transfusion of Nonautologous Red Blood Cells into Peripheral Vein, Percutaneous Approach (ICD-10-PCS; 2023-12-21)
PROC: 30233J1 Transfusion of Nonautologous Serum Albumin into Peripheral Vein, Percutaneous Approach (ICD-10-PCS; 2023-12-21)
PROC: 5A09457 Assistance with Respiratory Ventilation, 24-96 Consecutive Hours, Continuous Positive Airway Pressure (ICD-10-PCS; 2023-12-22)
PROC: 5A09457 Assistance with Respiratory Ventilation, 24-96 Consecutive Hours, Continuous Positive Airway Pressure (ICD-10-PCS; 2023-12-22)
PROC: 0JH609Z Insertion of Cardiac Resynchronization Defibrillator Pulse Generator into Chest Subcutaneous Tissue and Fascia, Open Approach (ICD-10-PCS; principal; 2024-01-02)
PROC: 02HK3KZ Insertion of Defibrillator Lead into Right Ventricle, Percutaneous Approach (ICD-10-PCS; 2024-01-02)
PROC: 02583ZZ Destruction of Conduction Mechanism, Percutaneous Approach (ICD-10-PCS; 2024-01-02)
PROC: 0JPT0PZ Removal of Cardiac Rhythm Related Device from Trunk Subcutaneous Tissue and Fascia, Open Approach (ICD-10-PCS; 2024-01-02)
PROC: 02PA3MZ Removal of Cardiac Lead from Heart, Percutaneous Approach (ICD-10-PCS; 2024-01-02)
PROC: 02HL3KZ Insertion of Defibrillator Lead into Left Ventricle, Percutaneous Approach (ICD-10-PCS; 2024-01-02)
PROC: 02H63KZ Insertion of Defibrillator Lead into Right Atrium, Percutaneous Approach (ICD-10-PCS; 2024-01-02)
PROC: 02K83ZZ Map Conduction Mechanism, Percutaneous Approach (ICD-10-PCS; 2024-01-02)
PROC: 06HY33Z Insertion of Infusion Device into Lower Vein, Percutaneous Approach (ICD-10-PCS; 2024-01-02)
PROC: 5A1945Z Respiratory Ventilation, 24-96 Consecutive Hours (ICD-10-PCS; 2024-01-02)
PROC: 0BH17EZ Insertion of Endotracheal Airway into Trachea, Via Natural or Artificial Opening (ICD-10-PCS; 2024-01-02)
PROC: 3E033XZ Introduction of Vasopressor into Peripheral Vein, Percutaneous Approach (ICD-10-PCS; 2024-01-02)
PROC: 4A133R1 Monitoring of Arterial Saturation, Peripheral, Percutaneous Approach (ICD-10-PCS; 2024-01-02)
PROC: 30233L1 Transfusion of Nonautologous Fresh Plasma into Peripheral Vein, Percutaneous Approach (ICD-10-PCS; 2024-01-02)
PROC: 30233K1 Transfusion of Nonautologous Frozen Plasma into Peripheral Vein, Percutaneous Approach (ICD-10-PCS; 2024-01-02)
PROC: 6A550Z2 Pheresis of Platelets, Single (ICD-10-PCS; 2024-01-02)
PROC: 0B9B8ZZ Drainage of Left Lower Lobe Bronchus, Via Natural or Artificial Opening Endoscopic (ICD-10-PCS; 2024-01-04)
PROC: 0B9M8ZZ Drainage of Bilateral Lungs, Via Natural or Artificial Opening Endoscopic (ICD-10-PCS; 2024-01-04)
PROC: 0B968ZZ Drainage of Right Lower Lobe Bronchus, Via Natural or Artificial Opening Endoscopic (ICD-10-PCS; 2024-01-04)
DX: I13.2 Hypertensive heart and chronic kidney disease with heart failure and with stage 5 chronic kidney disease, or end stage renal disease (principal); I50.23 Acute on chronic systolic (congestive) heart failure; J96.21 Acute and chronic respiratory failure with hypoxia; N18.6 End stage renal disease; Z68.43 Body mass index [BMI] 50.0-59.9, adult; N25.81 Secondary hyperparathyroidism of renal origin; D62 Acute posthemorrhagic anemia; I48.21 Permanent atrial fibrillation; J45.901 Unspecified asthma with (acute) exacerbation; E87.5 Hyperkalemia; I42.8 Other cardiomyopathies; Z51.5 Encounter for palliative care; Z66 Do not resuscitate; E66.01 Morbid (severe) obesity due to excess calories; G47.33 Obstructive sleep apnea (adult) (pediatric); D63.1 Anemia in chronic kidney disease; R57.8 Other shock; Z90.49 Acquired absence of other specified parts of digestive tract; Z98.890 Other specified postprocedural states; Z88.5 Allergy status to narcotic agent; Z88.8 Allergy status to other drugs, medicaments and biological substances; Z99.2 Dependence on renal dialysis; Z79.01 Long term (current) use of anticoagulants; Z95.810 Presence of automatic (implantable) cardiac defibrillator; Z99.81 Dependence on supplemental oxygen
CPT/HCPCS: 33224; 33241; 33249; 33264; 36415; 36416; 36430; 36600; 36901; 36902; 71045; 74018; 80048; 80053; 82805; 83690; 83735; 83880; 84484; 85025; 85049; 85300; 85362; 85384; 85610; 85730; 86706; 86850; 86900; 86901; 87340; 90935; 93005; 93613; 93650; 94002; 94003; 94640; 94660; 96374; C1725; C1763; C1769; C1882; C1887; C1894; C1898; C1900; C2630; C9113; G0257; G0378; J0171; J0690; J1265; J1580; J1644; J2001; J2250; J2704; J2920; J3010; J3490; J7030; J7050; J7070; J7620; P9016; P9035; P9045; P9047; P9059; Q5105; Q9967